=== PATIENT | male | born 1975 | race Two or more races ===

== ENCOUNTER 2024-06-13 00:22 | Emergency (ER) | payer MEDICARE, MEDICAID, SELFPAY ==
--- NOTE | ~2024-06-13 | XR_ITS ---
EXAMINATION: XR FOOT, RIGHT CLINICAL INFORMATION: s/p fall COMPARISON: None available. TECHNIQUE: AP, lateral, and oblique views of the right foot. FINDINGS: The bone mineralization is normal. There is a mildly displaced fracture through the distal fifth metatarsal. No other fracture is seen. The joint spaces are maintained. There is mild soft tissue swelling along the dorsum of the foot. XR/XR foot RT min 3V IMPRESSION: Mildly displaced fracture through the distal fifth metatarsal. Electronically signed by: Wilfredo Salinas MD 06/13/2024 01:22 AM [facility]
[2024-06-13 00:25] VITALS: BP 144/86; PULSE 76; O2SAT 98
[2024-06-13 00:32] VITALS: BP 119/63; PULSE 69; RESP 18; TEMP 36.8; O2SAT 98; BMI 30.4
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
--- NOTE | 2024-06-13 01:46 | PC.NURSE ---
This RN spoke to Edda, intake for [facility] at [phone] who reports they would not be able to provide transportation back to [facility] at [phone], [place] d/t incomplete intake/ patient requiring medical clearance. Per Edda, patient should find a ride back to [facility]. Per patient he does not have friends or family who would be able to provide transportation for him nor he has financial ability to pay for an uber ride. [employer] life sciences teacher made aware.
[2024-06-13] MEDS: Ibuprofen 800 MG TABLET PO (02:40)
[2024-06-13 02:42] VITALS: BP 132/89; PULSE 88; RESP 16; TEMP 36.7; O2SAT 98
== END 2024-06-13 02:43 | disposition home or self-care (01) ==
PROVIDERS: Emergency Provider Internal Medicine; PCP Internal Medicine
DX: S92.351A Displaced fracture of fifth metatarsal bone, right foot, initial encounter for closed fracture (principal); M79.671 Pain in right foot; X58.XXXA Exposure to other specified factors, initial encounter; Y93.9 Activity, unspecified; Y92.89 Other specified places as the place of occurrence of the external cause; Y99.8 Other external cause status
CPT/HCPCS: 73630; 99283; 99284

== ENCOUNTER 2024-08-28 14:00 | Emergency (ER) | payer MEDICARE, MEDICAID, SELFPAY ==
--- NOTE | ~2024-08-28 | US_ITS ---
CLINICAL HISTORY: ruq ? yenifer US abdomen limited Comparison: CT/SR - CT ABDOMEN PELVIS W IV CON - 08/28/24 16:57 EDT Findings: Multiple mobile echogenic foci in the gallbladder with acoustic shadowing consistent with cholelithiasis. The largest stone measures 2 cm. Gallbladder wall measures 2 mm. Common bile duct measures 4 mm. No ascites adjacent to the gallbladder. IMPRESSION: Cholelithiasis with no findings to suggest acute cholecystitis. This document has been electronically signed by: Chelsea Georges MD on 08/28/2024 19:09:05
--- NOTE | ~2024-08-28 | CT_ITS ---
CLINICAL HISTORY: abd pain n v CT abdomen and pelvis with contrast Comparison: None Findings: Minimal bilateral basilar atelectasis. No consolidation or pleural effusion. Cholelithiasis. No inflammatory changes adjacent to the gallbladder. No biliary ductal dilatation. The liver, spleen, pancreas, adrenal glands and kidneys appear unremarkable. No ureteral stones and no hydronephrosis or hydroureter. No bowel obstruction, pneumoperitoneum, or pneumatosis. Normal appendix. Moderate colonic stool. No free fluid. Mild wall thickening of urinary bladder anteriorly. Mild atherosclerotic vascular disease. No aneurysm of the abdominal aorta. No acute fracture. Right L5 pars defect and L5-S1 degenerative disc disease. L5-S1 and L4-5 facet arthropathy. IMPRESSION: 1. Cholelithiasis with no CT findings to suggest acute cholecystitis but if clinically indicated follow-up ultrasound could be obtained. 2. Moderate pancolonic stool, correlate with constipation. 3. Mild anterior urinary bladder thickening may represent cystitis. Correlate with urinalysis. This document has been electronically signed by: Chelsea Georges MD on 08/28/2024 17:51:10
[2024-08-28 14:04] VITALS: BP 158/102; PULSE 82; O2SAT 96
[2024-08-28 14:21] VITALS: BP 158/93; PULSE 66; RESP 16; TEMP 36.8; O2SAT 95; BMI 34.4
[2024-08-28 14:25] VITALS: BP 158/93; PULSE 66; RESP 16; TEMP 36.8; O2SAT 95
--- NOTE | 2024-08-28 14:31 | ED_ITS ---
HPI - Nausea/Vomiting/Diarrhea General Chief complaint: Nausea/Vomiting/Diarrhea Stated complaint: [facility] care home, vomiting Time Seen by Provider: 08/28/24 14:13 History of Present Illness HPI Narrative: Patient is a 49-year-old male with a history of feeling nausea at [facility]. Patient went to [facility] for life stressor. Denies any suicidal homicidal ideation. Claims he ate some bad chicken last night. Had some mild epigastric pain. No diarrhea. No abdominal surgery done in the past. Patient denies any coughing congestion upper respiratory symptoms. No diaphoresis. Related Data Previous Rx's ?Medication ?Instructions ?Recorded ibuprofen 600 mg tablet 600 mg PO Q6H PRN fever or pain 06/13/24 #30 tabs ondansetron 4 mg disintegrating 4 mg PO TID PRN nausea and 08/28/24 tablet vomiting 5 days #10 tabs Allergies Allergy/AdvReac Type Severity Reaction Status Date / Time No Known Allergies Allergy Verified 08/28/24 14:23 Review of Systems 2 Review of Systems: Positive abdominal pain nausea vomiting Yes all other systems are reviewed and are negative [facility] Past Medical History Attestation statement: The following information was validated with the patient. Social History Social History Alcohol intake: never Smoked in Last 30 Days: Yes Use of substances other than those prescribed or required for medical reasons: No Substance Use Type: Heroin Advance Directives: No Advance Directives Information Provided: No Do you have a plan to hurt others: No Plan Physical Exam 2 Vital Signs: Vital Signs: Last Vital Signs Temp 98.3 F 08/28/24 18:48 Pulse 88 08/28/24 18:48 Resp 18 08/28/24 18:48 BP 148/95 H 08/28/24 18:48 Pulse Ox 98 08/28/24 18:48 O2 Del Method Room Air 08/28/24 18:48 BMI result Body Mass Index 34.4 Appearance: Alert. Oriented X3. No acute distress. Eyes: Pupils equal, round and reactive to light. ENT: Pharynx normal. Neck: Normal inspection. Neck supple. No lymph nodes noted. No crepitus CVS: Normal heart rate and rhythm. Pulses normal. Normal S1 and S2 Respiratory: No respiratory distress. Breath sounds normal. No Wheezing. No rales Abdomen: Soft and nontender. No rigidity. No distention. good BS x4 Skin: Skin warm and dry. Normal skin color. Normal skin turgor. Extremities: No lower extremity edema. Neurovascular intact to all extremities. No Lacerations. No Rash Neuro: Oriented X 3. No motor deficit. No sensory deficit. Moving all extermities. No slurred speech Medications Administered Generic Name Dose Route Start Last Admin Trade Name Freq PRN Reason Stop Dose Admin Nicotine Polacrilex 2 mg 08/28/24 19:02 08/28/24 19:07 Nicotine Polacrilex 2 Mg Gum BUCCAL 2 mg Q1H PRN Administration Nicotine Cravings Discontinued Medications Generic Name Dose Route Start Last Admin Trade Name Freq PRN Reason Stop Dose Admin Sodium Chloride 1,000 mls @ 999 mls/hr 08/28/24 14:30 08/28/24 18:04 Ns IV 08/28/24 15:30 Infused .Q1H1M GILDARDO Infusion Iohexol 85 ml 08/28/24 17:02 08/28/24 17:03 Iohexol 350 Mg/Ml 100 Ml Infus..Btl IV 08/28/24 17:03 85 ml ONCE ONE Administration Ketorolac Tromethamine 15 mg 08/28/24 14:30 08/28/24 15:10 Ketorolac Tromethamine 15 Mg/Ml Vial IVPUSH 08/28/24 14:31 15 mg ONCE ONE Administration Ondansetron HCl 4 mg 08/28/24 14:30 08/28/24 15:10 Ondansetron Hcl 4 Mg/2 Ml Vial IVPUSH 08/28/24 14:31 4 mg ONCE ONE Administration Medical Decision Making Medical Decision Making [facility] Narrative: Patient presented today with having abdominal pain having nausea vomiting after eating bad chicken per patient. His CT scan of the abdomen showed no acute evidence of obstruction abscess perforation per Radiology. Unsure about having cholecystitis versus urinary tract infection patient's urine was grossly negative for infection. An ultrasound of the right upper quadrant showed cholelithiasis but no evidence for cholecystitis. Patient's symptom improved. Tolerated p.o. in the emergency department. Tox screen was positive for multiple substances. Will discharge patient home close follow-up on an outpatient basis not suicidal not homicidal in stable condition wants to go home. Differential Diagnosis Differential Diagnoses: The differential diagnosis associated with the presentation includes Nausea vomiting, cholecystitis, UTI, polysubstance abuse Admission/Observation Consideration of admission/observation: Escalation of care including admission/observation considered Lab Data MDM Lab Attestation statement: I reviewed the patient's lab results. 08/28/24 15:00 08/28/24 15:00 Labs: Lab Results 08/28/24 08/28/24 Range/Units 15:00 17:33 WBC 19.0 H (4.8-10.8) X10*3/uL RBC 4.39 L (4.60-5.80) X10*6/uL Hgb 13.4 L (14.0-18.0) g/dl Hct 40.5 L (42.0-52.0) % MCV 92.3 (80.0-98.0) fL MCH 30.5 (27.0-33.0) pg MCHC 33.1 (31.0-36.0) g/dl RDW 12.4 (11.0-16.0) % Plt Count 281 (160-400) X10*3/uL MPV 10.8 (9.4-12.4) fL Immature Gran % (Auto) 0.5 H (0.0-0.4) % Neut % (Auto) 85.3 H (45-73) % Lymph % (Auto) 5.9 L (20-40) % [place] % (Auto) 7.3 (2-11) % Eos % (Auto) 0.8 (0-4) % Baso % (Auto) 0.2 (0-2) % Lymph # (Auto) 1.1 L (1.2-4.9) X10*3/uL [place] # (Auto) 1.4 H (0.1-1.2) X10*3/uL Eos # (Auto) 0.2 (0.0-0.4) X10*3/uL Baso # (Auto) 0.0 (0.0-0.2) X10*3/uL Abs Immat Gran (auto) 0.09 H (0.00-0.03) X10*3/uL Absolute Neuts (auto) 16.2 H (2.0-8.3) x10*3/uL Absolute Nucleated RBC 0.000 (0.0-0.012) X10*3/uL Nucleated RBC % (auto) 0.0 (0.0-0.2) /100WBC Sodium 142 (135-145) mmol/L Potassium 3.4 (3.3-5.1) mmol/L Chloride 106 (96-108) mmol/L Carbon Dioxide 27 (22-29) mmol/L Anion Gap 12 (12-20) BUN 12 (9-16) mg/dL Creatinine 0.72 (0.5-1.4) mg/dL Estim Creat Clear Calc 161.2 Estimated GFR > 60 Random Glucose 107 (60-115) mg/dL Calcium 9.6 (8.4-10.2) mg/dL Total Bilirubin 0.4 (0.0-1.0) mg/dL Direct Bilirubin 0.1 (0.0-0.5) mg/dL AST 19 (5-37) U/L ALT 9 (0-40) U/L Alkaline Phosphatase 84 (39-117) U/L Total Protein 8.4 H (6.5-8.0) g/dL Albumin 4.2 (3.5-5.0) g/dL Lipase 20 (8-78) U/L Urine Color Yellow Urine Appearance Clear Urine pH 6.5 (5.0-9.0) Ur Specific [place] >= 1.030 H (1.005-1.025) Urine Protein 30 (1+) H (Neg-Trace) mg/dL Urine Glucose (UA) Negative (Negative) mg/dL Urine Ketones Negative (Negative) mg/dL Urine Blood Negative (Negative) Urine Nitrite Negative (Negative) Ur Leukocyte Esterase Negative (Negative) Urine RBC 0-2 (0-2) /HPF Urine WBC 0-5 (0-5) /HPF Ur Squamous Epith Cells 0-2 (0-2) /HPF Urine Bacteria None Seen (None Seen) Hyaline Casts 3-5 (0-2) /LPF Urine Opiates Screen POSITIVE H (Not Detect) Ur Buprenorphine Scrn Not Detected (Not Detect) ng/mL Ur Oxycodone Screen Not Detected (Not Detect) ng/mL Urine Methadone Screen Positive H (Not Detect) ng/mL Urine Fentanyl Screen POSITIVE H (Not Detect) Ur Barbiturates Screen Not Detected (Not Detect) Ur Phencyclidine Scrn Not Detected (Not Detect) Ur Amphetamines Screen Not Detected (Not Detect) U Benzodiazepines Scrn Not Detected (Not Detect) Urine Cocaine Screen POSITIVE H (Not Detect) U Marijuana (THC) Screen Not Detected (Not Detect) Ethyl Alcohol < 10 mg/dL Independent Interpretation I performed an independent interpretation of an: CT Scan (No gross obstruction observed) Radiology Impression Discussion of test interpretation with radiology: I have reviewed the radiologist's reading. Chronic Conditions History of polysubstance abuse Social Determinants Patient?s care significantly limited by Social Determinants of Health including: Alcoholism and drug addiction in family, Problems related to primary support group and Unemployment Discharge Plan Discharge Clinical Impression: Food poisoning Patient Disposition: Home, Self-Care Instructions: Food Poisoning (ED) Prescriptions: New ondansetron 4 mg tablet,disintegrating 4 mg PO TID PRN (Reason: nausea and vomiting) 5 Days Qty: 10 0RF No Action ibuprofen 600 mg tablet 600 mg PO Q6H PRN (Reason: fever or pain) Qty: 30 0RF Referrals: Harvey Javier MD [Primary Care Provider] - 08/30/24 Print Language: Cameroonian
[2024-08-28 15:04] LABS: MANUAL DIFF FLAG NO
[2024-08-28 15:09] LABS: Basophils Percent Auto 0.2 % (0-2); Eosinophils Absolute Auto 0.2 X10*3/uL (0.0-0.4); Eosinophils Percent Auto 0.8 % (0-4); Hematocrit 40.5 % (42.0-52.0); Hemoglobin 13.4 g/dl (14.0-18.0); Imm Gran Abs Auto 0.09 X10*3/uL (0.00-0.03); Imm Gran Pct Auto 0.5 % (0.0-0.4); Lymphocytes Absolute Auto 1.1 X10*3/uL (1.2-4.9); Lymphocytes Percent Auto 5.9 % (20-40); Mean Corpuscular HGB Conc 33.1 g/dl (31.0-36.0); Mean Corpuscular Hemoglobin 30.5 pg (27.0-33.0); Mean Corpuscular Volume 92.3 fL (80.0-98.0); Mean Platelet Volume 10.8 fL (9.4-12.4); Monocytes Absolute Auto 1.4 X10*3/uL (0.1-1.2); Monocytes Percent Auto 7.3 % (2-11); Neutrophils Absolute Auto 16.2 x10*3/uL (2.0-8.3); Neutrophils Percent Auto 85.3 % (45-73); Platelet Count 281 X10*3/uL (160-400); Red Blood Count 4.39 X10*6/uL (4.60-5.80); Red Cell Distribution Width 12.4 % (11.0-16.0)
[2024-08-28] MEDS: Ketorolac Tromethamine 15 MG/ML VIAL IVPUSH (15:10)
[2024-08-28] MEDS: ondansetron HCL 4 MG/2 ML VIAL IVPUSH (15:10)
[2024-08-28] MEDS: 0.9 % Sodium Chloride 1,000 ML 999 ML IV (15:10)
[2024-08-28 15:34] LABS: Ethanol < 10 mg/dL
[2024-08-28 15:46] LABS: Anion Gap 12 (12-20)
[2024-08-28 15:51] LABS: Alanine Aminotransferase 9 U/L (0-40); Albumin Level 4.2 g/dL (3.5-5.0); Aspartate Amino Transferase 19 U/L (5-37); Bilirubin Direct 0.1 mg/dL (0.0-0.5); Bilirubin Total 0.4 mg/dL (0.0-1.0); Blood Urea Nitrogen 12 mg/dL (9-16); Calcium 9.6 mg/dL (8.4-10.2); Carbon Dioxide 27 mmol/L (22-29); Chloride 106 mmol/L (96-108); Creatinine Clr Calc Pharmacy 161.2; Estimated Glomerular Filt Rate > 60; Glucose Random 107 mg/dL (60-115); Lipase 20 U/L (8-78); Potassium 3.4 mmol/L (3.3-5.1); Sodium 142 mmol/L (135-145); Total Protein 8.4 g/dL (6.5-8.0)
--- NOTE | 2024-08-28 16:15 | PC.NURSE ---
Pt. refusing changeover to hospital attire.
[2024-08-28] MEDS: iohexoL 350 MG/ML 100 ML INFUS..BTL 85 ML IV (17:03)
[2024-08-28 17:47] LABS: Alkaline Phosphatase 84 U/L (39-117)
[2024-08-28 17:49] LABS: Amphetamine Screen Urine Not Detected (Not Detect); Barbiturates, Urine Not Detected (Not Detect); Benzodiazepines Screen Urine Not Detected (Not Detect); Buprenorphine Scr Not Detected (Not Detect); Cannabinoid Screen Urine Not Detected (Not Detect); Cocaine Screen Urine POSITIVE (Not Detect); Fentanyl, urine POSITIVE (Not Detect); Methadone Screen, Urine Positive (Not Detect); Opiate Screen Urine POSITIVE (Not Detect); Oxycodone Screen Urine Not Detected (Not Detect); Phencyclidine Screen Urine Not Detected (Not Detect)
[2024-08-28 18:48] VITALS: BP 148/95; PULSE 88; RESP 18; TEMP 36.8; O2SAT 98
[2024-08-28 19:02] LABS: Appearance Urine Clear; Color Urine Yellow; Glucose Urine UA Negative (Negative); Leukocyte Esterase Urine Negative (Negative); Nitrite Urine Negative (Negative); PH 6.5 (5.0-9.0); Specific Gravity - Urine >= 1.030 (1.005-1.025); UMIC TRIGGER UACC YES; Urine Blood Negative (Negative); Urine Ketones Negative (Negative); Urine Protein 30 (1+) mg/dL (Neg-Trace)
[2024-08-28 19:05] LABS: Bacteria Urine None Seen (None Seen); RBC Urine 0-2 /HPF (0-2); Squamous Epithelial Cell Urine 0-2 /HPF (0-2); WBC Urine 0-5 /HPF (0-5)
[2024-08-28] MEDS: Nicotine Polacrilex 2 MG GUM BUCCAL (19:07)
--- NOTE | 2024-08-28 19:30 | PC.NURSE ---
This RN d/c patient for RN who assumed care of pt. Pt denies pain at this time Pt reports he is going back to [facility] in [place] and reports needs to be given to [facility] that he is medically cleared. This RN called [facility] @ [phone] Per [facility] will have a line installation supervisor call us back. Plan of care ongoing.
[2024-08-28 19:33] VITALS: BP 148/95; PULSE 88; RESP 18; TEMP 36.8; O2SAT 98
== END 2024-08-28 19:37 | disposition home or self-care (01) ==
PROVIDERS: Emergency Provider Emergency Medicine Emergency Medical Services; PCP Internal Medicine
DX: A05.9 Bacterial foodborne intoxication, unspecified (principal); R11.2 Nausea with vomiting, unspecified; R10.11 Right upper quadrant pain; F14.90 Cocaine use, unspecified, uncomplicated; F11.90 Opioid use, unspecified, uncomplicated; F12.90 Cannabis use, unspecified, uncomplicated; Z51.81 Encounter for therapeutic drug level monitoring; Z79.899 Other long term (current) drug therapy
CPT/HCPCS: 36415; 74177; 76705; 80048; 80076; 80307; 81001; 83690; 85025; 96361; 96374; 96375; 99284; 99285; J1885; J2405; Q9967

== ENCOUNTER → 2024-08-28 14:29 | Outpatient (BNV) | payer MEDICARE, MEDICAID, SELFPAY | PROVIDERS: Emergency Provider Emergency Medicine Emergency Medical Services; PCP Internal Medicine; Visit Provider Specialist | DX: K80.20 Calculus of gallbladder without cholecystitis without obstruction (principal); R19.5 Other fecal abnormalities | CPT/HCPCS: 74177; 76705 ==

== ENCOUNTER 2024-11-27 13:10 | Emergency (ER) | payer MEDICARE, MEDICAID, SELFPAY ==
[2024-11-27 13:29] VITALS: BP 154/77; PULSE 60; RESP 18; TEMP 36.4; O2SAT 95; BMI 29.3
--- NOTE | 2024-11-27 13:33 | ED_ITS ---
HPI - General Adult General Chief complaint: Psychiatric Symptoms Stated complaint: Crisis Time Seen by Provider: 11/27/24 14:08 Source: patient and RN notes reviewed Mode of arrival: ambulatory Limitations: no limitations History of Present Illness ED Provider: Cecy Maldonado PA-C HPI narrative: This is a 49-year-old male, with a past medical history of opioid use disorder on methadone 100 mg daily, who presents emergency department with concerns of ?dark thoughts and feeling depressed . Patient states that he has thoughts of ending his life with overdosing on dope . He denies any SI or HI. Patient states that he does use about a bundle of heroin a day. He denies any homicidal ideation. No auditory or visual hallucinations. He has no current pain. No chest pain or shortness for breath. No abdominal pain. No urinary symptoms, he does report that his urine is dark. He states that he has a history of suicidal thoughts however states that he has not had these for about 20 years. He does admit to having increased life stressors, does not elaborate on these details. No other complaints or concerns at this time. MD complaint: Suicidal ideation, increased depression Radiation: non-radiation Quality: aching Pain Consistency: constant Relieving factors: none Exacerbating factors: none Associated symptoms: denies other symptoms Treatments prior to arrival: none Related Data Home Medications ?Medication ?Instructions ?Recorded ?Confirmed clonazepam 1 mg tablet 1 mg PO TID PRN Anxiety 11/27/24 11/27/24 clonidine HCl 0.1 mg tablet 0.1 mg PO BID 11/27/24 11/27/24 fluoxetine 20 mg capsule 20 mg PO DAILY 11/27/24 11/27/24 lisinopril 10 mg tablet 10 mg PO DAILY 11/27/24 11/27/24 trazodone 50 mg tablet 100 mg PO BEDTIME PRN Sleep 11/27/24 11/27/24 methadone 10 mg/mL oral 100 mg PO DAILY 11/28/24 11/28/24 concentrate (Methadone Intensol) Previous Rx's ?Medication ?Instructions ?Recorded ibuprofen 600 mg tablet 600 mg PO Q6H PRN fever or pain 06/13/24 #30 tabs ondansetron 4 mg disintegrating 4 mg PO TID PRN nausea and 08/28/24 tablet vomiting 5 days #10 tabs Allergies Allergy/AdvReac Type Severity Reaction Status Date / Time No Known Allergies Allergy Verified 11/27/24 13:31 Review of Systems 2 Review of Systems: Yes all other systems are reviewed and are negative Constitutional: Constitutional: Reports as per [facility] Past Medical History Attestation statement: The following information was validated with the patient. Social History Social History Alcohol intake: never Smoked in Last 30 Days: Yes Use of substances other than those prescribed or required for medical reasons: Yes Substance Use Type: Heroin and Opiates Substance Use Frequency: Chronic Longstanding Advance Directives: No Advance Directives Information Provided: No Physical Exam ED Vital Signs: Vital Signs - 24 hr 11/27/24 13:29 11/27/24 14:19 11/27/24 21:06 Temperature 97.5 F 98 F Pulse Rate 60 58 60 Respiratory Rate 18 16 18 Blood Pressure 154/77 H 166/96 H 176/92 H Pulse Oximetry 95 96 99 Oxygen Delivery Method Room Air Room Air Room Air 11/27/24 22:39 11/27/24 22:41 11/28/24 08:09 Temperature 0 F L Pulse Rate 61 61 Respiratory Rate 16 18 Blood Pressure 155/83 H 155/83 H 155/83 H Pulse Oximetry Oxygen Delivery Method BMI result Body Mass Index 29.3 Const General: cooperative, comfortable and no acute distress Orientation/consciousness: patient oriented x3 Limitations: no limitations [facility] Head: Yes normal to inspection, Yes normocephalic and Yes atraumatic Ears: hearing grossly normal bilaterally General nose exam: Normal external nose present Face and sinus: Yes normal facial exam Mouth: Normal oral and palatal mucosa present, oropharynx normal and moist mucous membranes Throat: Yes posterior oropharynx normal Eyes General: appearance normal, both eyes and all related structures Eyelids: Yes eyelids normal Conjunctivae: conjunctivae normal Sclerae: sclerae normal Pupils: Equal, round and reactive pupils present EOM: EOMs intact bilaterally Neck Neck: Yes normal visual inspection, Yes full ROM and Yes no lymphadenopathy Lymphatic: no lymphadenopathy noted Chest Chest palpation & inspection: normal inspection of the chest Resp Effort & Inspection: normal respiratory effort and able to speak in complete sentences Auscultation: clear to auscultation bilaterally, no crackles, no rales, no rhonchi and no wheezes Cardio Rate: regular rate Rhythm: regular rhythm Heart sounds: S1 normal heart sound present and S2 normal heart sound present GI Inspection: Yes normal to inspection Skin General skin exam: no rashes or lesions noted Trauma: no lacerations or abrasions Wounds: no wounds Neuro General: patient oriented x3 and moves all extremities Cranial nerves: Yes Equal, round and reactive pupils present Extrem General: Yes normal to inspection Right upper extremity: normal to inspection Left upper extremity: normal to inspection Right lower extremity: normal to inspection Left lower extremity: normal to inspection Psych Appearance: grossly normal Mental Status: mental status grossly normal Speech and movement: Normal speech and movement present Affect: Sad affect present Attitude: Guarded attititude/behavior present and Avoids eye contact (attititude/behavior) Thought process: Normal thought process present Thought content: Suicidality present and Homicidality present Insight: Limited insight present (Psych) Judgement: Limited judgement present (Psych) Course Course Course Narrative: RMEI: 49 yold male with history of depression presents to ED for dark thoughts and extreme depression. Patient denies any suicidal or homicidal thoughts. Patient is with family friend who he calls his mother. Labs care team motor Reevaluation(s) Reevaluation #1: Time: 06:35 Date: 11/28/24 Provider: Johann Leonard MD Patient in physician observation for psychiatric evaluation.? Patient has been in the emergency department for 17 hours. Patient was evaluated by the care team, diagnosed with depression and opiate use disorder and the patient will be a dual diagnosis bed search. Patient is voluntary level of care. No acute events reported overnight. No current complaints. VS stable. Will continue to monitor. Time: 07:52 Date: 11/28/24 Provider: Johann Leonard MD Physician observation ended at 07:52 hours. Patient has been was accepted to [facility] for further treatment. Patient was given his dose of methadone 100 mg orally prior to discharge. Medications Administered Discontinued Medications Generic Name Dose Route Start Last Admin Trade Name Freq PRN Reason Stop Dose Admin Clonazepam 1 mg 11/27/24 22:00 11/27/24 22:41 Clonazepam 1 Mg Tablet PO 1 mg TID PRN Administration Anxiety Clonidine HCl 0.1 mg 11/27/24 22:00 11/27/24 22:41 Clonidine Hcl 0.1 Mg Tablet PO 0.1 mg BID GILDARDO Administration Protocol Methadone HCl 100 mg 11/28/24 07:48 11/28/24 07:57 Methadone Hcl 20 Mg/2 Ml Oral.Conc PO 11/28/24 07:49 100 mg ONCE ONE Administration Trazodone HCl 100 mg 11/27/24 22:00 11/27/24 22:41 Trazodone Hcl 100 Mg Tablet PO 100 mg BEDTIME PRN Administration Sleep Medical Decision Making Medical Decision Making [facility] Narrative: This is a 49-year-old male, with a history of opioid use disorder on methadone, who presents emergency department with concerns of increased depression and suicidal ideation with plan to overdose on heroin. On arrival, blood pressure elevated 154/77. He is in no current pain. No chest pain, shortness of breath, blurred vision or headache. Patient has no physical complaints. We will obtain basic labs, urinalysis, U tox and patient will be seen by the care team. Course: Labs returned, patient with no leukocytosis, normocytic anemia with an H&H of 12.3/37, chemistry with no significant electrolyte derangement, UA with high specific gravity, trace ketones, and trace protein and trace leuk esterases. He has no urinary symptoms, will await urine culture. Urine toxicology revealing positive opiates, methadone, fentanyl and cocaine. Will add CPK, and troponin as well as EKG. 1753 - CPK within normal limits, troponin negative. EKG sinus bradycardic at a ventricular rate of 58 beats per minute, KY interval 174, QT QTC 442/433, no STEMI. Patient was seen and evaluated by the care team, and recommending dual diagnosis bed search. Physician observation initiated pending inpatient dual diagnosis bed search. Differential Diagnosis Differential Diagnoses: The differential diagnosis associated with the presentation includes Depression, anxiety, polysubstance abuse, suicidal ideation Lab Data [facility] Lab Attestation statement: I reviewed the patient's lab results. See MDM and course comment 11/27/24 15:04 11/27/24 15:04 Labs: Lab Results 11/27/24 Range/Units 15:04 WBC 5.9 (4.8-10.8) X10*3/uL RBC 3.99 L (4.60-5.80) X10*6/uL Hgb 12.3 L (14.0-18.0) g/dl Hct 37.0 L (42.0-52.0) % MCV 92.7 (80.0-98.0) fL MCH 30.8 (27.0-33.0) pg MCHC 33.2 (31.0-36.0) g/dl RDW 12.0 (11.0-16.0) % Plt Count 205 D (160-400) X10*3/uL MPV 10.8 (9.4-12.4) fL Immature Gran % (Auto) 0.3 (0.0-0.4) % Neut % (Auto) 50.7 (45-73) % Lymph % (Auto) 39.3 (20-40) % Lamar % (Auto) 6.3 (2-11) % Eos % (Auto) 2.9 (0-4) % Baso % (Auto) 0.5 (0-2) % Lymph # (Auto) 2.3 (1.2-4.9) X10*3/uL Lamar # (Auto) 0.4 (0.1-1.2) X10*3/uL Eos # (Auto) 0.2 (0.0-0.4) X10*3/uL Baso # (Auto) 0.0 (0.0-0.2) X10*3/uL Abs Immat Gran (auto) 0.02 (0.00-0.03) X10*3/uL Absolute Neuts (auto) 3.0 (2.0-8.3) x10*3/uL Absolute Nucleated RBC 0.000 (0.0-0.012) X10*3/uL Nucleated RBC % (auto) 0.0 (0.0-0.2) /100WBC PT 11.6 (10.9-12.4) SEC INR 1.0 (0.9-1.1) APTT 32.2 (26.0-36.8) SEC Sodium 142 (135-145) mmol/L Potassium 3.8 (3.3-5.1) mmol/L Chloride 105 (96-108) mmol/L Carbon Dioxide 31 H (22-29) mmol/L Anion Gap 10 L (12-20) BUN 11 (9-16) mg/dL Creatinine 0.66 (0.5-1.4) mg/dL Estim Creat Clear Calc 162.9 Estimated GFR > 60 Random Glucose 115 (60-115) mg/dL Calcium 9.7 (8.4-10.2) mg/dL Total Bilirubin 0.3 (0.0-1.0) mg/dL AST 23 (5-37) U/L ALT 12 (0-40) U/L Alkaline Phosphatase 73 (39-117) U/L Total Creatine Kinase 117 (38-174) U/L Troponin I High Sens 2.8 (<3.5-35.0) ng/L Total Protein 7.3 (6.5-8.0) g/dL Albumin 4.2 (3.5-5.0) g/dL Urine Color Dark Yellow Urine Appearance Clear Urine pH 6.0 (5.0-9.0) Ur Specific Mcbee >= 1.030 H (1.005-1.025) Urine Protein Trace (Neg-Trace) mg/dL Urine Glucose (UA) Negative (Negative) mg/dL Urine Ketones Trace (Negative) mg/dL Urine Blood Negative (Negative) Urine Nitrite Negative (Negative) Ur Leukocyte Esterase Trace H (Negative) Urine RBC 0-2 (0-2) /HPF Urine WBC 0-5 (0-5) /HPF Ur Squamous Epith Cells 0-2 (0-2) /HPF Urine Bacteria None Seen (None Seen) Hyaline Casts 0-2 (0-2) /LPF Urine Opiates Screen POSITIVE H (Not Detect) Ur Buprenorphine Scrn Not Detected (Not Detect) ng/mL Ur Oxycodone Screen Not Detected (Not Detect) ng/mL Urine Methadone Screen Positive H (Not Detect) ng/mL Urine Fentanyl Screen POSITIVE H (Not Detect) Ur Barbiturates Screen Not Detected (Not Detect) Ur Phencyclidine Scrn Not Detected (Not Detect) Ur Amphetamines Screen Not Detected (Not Detect) U Benzodiazepines Scrn Not Detected (Not Detect) Urine Cocaine Screen POSITIVE H (Not Detect) U Marijuana (THC) Screen Not Detected (Not Detect) Ethyl Alcohol < 10 mg/dL Discharge Plan Discharge Clinical Impression: Opioid use disorder, Suicidal ideation Patient Disposition: Xfer Psychiatric Hosp Transfer Details: [facility] Prescriptions: No Action ibuprofen 600 mg tablet 600 mg PO Q6H PRN (Reason: fever or pain) Qty: 30 0RF ondansetron 4 mg tablet,disintegrating 4 mg PO TID PRN (Reason: nausea and vomiting) 5 Days Qty: 10 0RF clonazepam 1 mg tablet 1 mg PO TID PRN (Reason: Anxiety) fluoxetine 20 mg capsule 20 mg PO DAILY clonidine HCl 0.1 mg tablet 0.1 mg PO BID lisinopril 10 mg tablet 10 mg PO DAILY trazodone 50 mg tablet 100 mg PO BEDTIME PRN (Reason: Sleep) methadone [Methadone Intensol] 10 mg/mL Concentrate 100 mg PO DAILY Interventions: [place]-Suicide Risk Severity Scale Last Done: 11/27/24 14:19 Acute Care Transfer Worksheet (ED) Last Done: 11/28/24 08:09 Discharge Date/Time: 11/28/24 08:12 Print Language: Angolan
[2024-11-27 14:19] VITALS: BP 166/96; PULSE 58; RESP 16; O2SAT 96
--- NOTE | 2024-11-27 14:24 | PC.NURSE ---
Patient is a 49 yo male who presents with increasing depression, and vague SI. PMH: opiate use disorder on maintenance methadone program. States was suicidal yesterday and was planning to overdose. Alert and oriented, cooperative with care.No eye contact noted. Lungs clear bilat. Respirations even and non-labored. Abdomen soft, non-tender with positive bowel sounds. Positive pedal pulses. Pending care team eval.
[2024-11-27 15:09] LABS: MANUAL DIFF FLAG NO
[2024-11-27 15:11] LABS: Basophils Percent Auto 0.5 % (0-2); Eosinophils Absolute Auto 0.2 X10*3/uL (0.0-0.4); Eosinophils Percent Auto 2.9 % (0-4); Hemoglobin 12.3 g/dl (14.0-18.0); Imm Gran Abs Auto 0.02 X10*3/uL (0.00-0.03); Imm Gran Pct Auto 0.3 % (0.0-0.4); Lymphocytes Absolute Auto 2.3 X10*3/uL (1.2-4.9); Lymphocytes Percent Auto 39.3 % (20-40); Mean Corpuscular HGB Conc 33.2 g/dl (31.0-36.0); Mean Corpuscular Hemoglobin 30.8 pg (27.0-33.0); Mean Corpuscular Volume 92.7 fL (80.0-98.0); Mean Platelet Volume 10.8 fL (9.4-12.4); Monocytes Absolute Auto 0.4 X10*3/uL (0.1-1.2); Monocytes Percent Auto 6.3 % (2-11); Neutrophils Percent Auto 50.7 % (45-73); Platelet Count 205 X10*3/uL (160-400); Red Blood Count 3.99 X10*6/uL (4.60-5.80); White Blood Count 5.9 X10*3/uL (4.8-10.8)
[2024-11-27 15:15] LABS: Appearance Urine Clear; Color Urine Dark Yellow; Glucose Urine UA Negative (Negative); Leukocyte Esterase Urine Trace (Negative); Nitrite Urine Negative (Negative); Specific Gravity - Urine >= 1.030 (1.005-1.025); UMIC TRIGGER UACC YES; Urine Blood Negative (Negative); Urine Ketones Trace mg/dL (Negative); Urine Protein Trace mg/dL (Neg-Trace)
[2024-11-27 15:17] LABS: Prothrombin Time 11.6 SEC (10.9-12.4)
[2024-11-27 15:18] LABS: Bacteria Urine None Seen (None Seen); Hyaline Casts Urine 0-2 /LPF (0-2); RBC Urine 0-2 /HPF (0-2); Squamous Epithelial Cell Urine 0-2 /HPF (0-2); WBC Urine 0-5 /HPF (0-5)
[2024-11-27 15:19] LABS: Partial Thromboplastin Time 32.2 SEC (26.0-36.8)
[2024-11-27 15:26] LABS: Amphetamine Screen Urine Not Detected (Not Detect); Barbiturates, Urine Not Detected (Not Detect); Benzodiazepines Screen Urine Not Detected (Not Detect); Buprenorphine Scr Not Detected (Not Detect); Cannabinoid Screen Urine Not Detected (Not Detect); Cocaine Screen Urine POSITIVE (Not Detect); Fentanyl, urine POSITIVE (Not Detect); Methadone Screen, Urine Positive (Not Detect); Opiate Screen Urine POSITIVE (Not Detect); Oxycodone Screen Urine Not Detected (Not Detect); Phencyclidine Screen Urine Not Detected (Not Detect)
[2024-11-27 15:28] LABS: Alanine Aminotransferase 12 U/L (0-40); Albumin Level 4.2 g/dL (3.5-5.0); Alkaline Phosphatase 73 U/L (39-117); Anion Gap 10 (12-20); Aspartate Amino Transferase 23 U/L (5-37); Bilirubin Total 0.3 mg/dL (0.0-1.0); Blood Urea Nitrogen 11 mg/dL (9-16); Calcium 9.7 mg/dL (8.4-10.2); Carbon Dioxide 31 mmol/L (22-29); Chloride 105 mmol/L (96-108); Creatinine Clr Calc Pharmacy 162.9; Estimated Glomerular Filt Rate > 60; Ethanol < 10 mg/dL; Glucose Random 115 mg/dL (60-115); Potassium 3.8 mmol/L (3.3-5.1); Sodium 142 mmol/L (135-145); Total Protein 7.3 g/dL (6.5-8.0)
--- NOTE | 2024-11-27 16:10 | ECG_ITS ---
Test Reason : CHECK PROLONG QT Blood Pressure : */* mmHG Vent. Rate : 58 BPM Atrial Rate : 58 BPM P-R Int : 174 ms QRS Dur : 96 ms QT Int : 442 ms P-R-T Axes : 24 3 27 degrees QTcB Int : 433 ms Sinus bradycardia Otherwise normal ECG No previous ECGs available Referred By: Cecy Maldonado Electronically Signed By: LITA COPE MD
[2024-11-27 16:36] LABS: Troponin-I High Sensitivity 2.8 ng/L (<3.5-35.0)
[2024-11-27 21:06] VITALS: BP 176/92; PULSE 60; RESP 18; TEMP 36.6; O2SAT 99
[2024-11-27 22:39] VITALS: BP 155/83; PULSE 61; RESP 16
[2024-11-27 22:41] VITALS: BP 155/83
[2024-11-27] MEDS: clonazePAM 1 MG TABLET PO (22:41)
[2024-11-27] MEDS: traZODone HCL 100 MG TABLET PO (22:41)
[2024-11-27] MEDS: cloNIDine HCL 0.1 MG TABLET PO (22:41)
--- NOTE | 2024-11-28 07:42 | PC.NURSE ---
Addendum entered by Ana Lazaro RN 11/28/24 07:45: Methadone verification form completed and faxed to Pharmacy. Call placed to Pharmacy and spoke with Cynthia who confirms form arrival. Hard copy placed to be filed in Pts hard chart. Original Note: Call placed to [facility] to verify Pts Methadone dose. Pt placed on the phone to provide consent to [facility] release Methadone information over the phone. Spoke with MARLENE Iraheta who verifies 100mg given on 11/27/24. Myrtle advised that Pt will be transitioning to [facility] today.
--- NOTE | 2024-11-28 07:54 | HE.PHANOTE ---
RE: METHADONE DOSING Last dose of methadone 100 mg was given on 11/27/24 at Linnette Iraheta RN.
[2024-11-28] MEDS: methADONE HCl 20 MG/2 ML ORAL.CONC 100 MG PO (07:57)
--- NOTE | 2024-11-28 08:01 | PC.NURSE ---
Pt scheduled for transfer to [facility] Pt dosed with Methadone prior to departure. RN report given to [facility] for transport. Care of Pt relinquished to [facility].
[2024-11-28 08:09] VITALS: BP 155/83; PULSE 61; RESP 18; TEMP -17.7; TEMP 0
== END 2024-11-28 08:12 ==
PROVIDERS: Physician Assistant; Physician Assistant Medical; Emergency Provider Emergency Medicine Emergency Medical Services; PCP Internal Medicine
DX: F33.1 Major depressive disorder, recurrent, moderate (principal); R45.851 Suicidal ideations; F11.10 Opioid abuse, uncomplicated; R00.1 Bradycardia, unspecified; Z79.899 Other long term (current) drug therapy; Z51.81 Encounter for therapeutic drug level monitoring
CPT/HCPCS: 36415; 80053; 80307; 81001; 82550; 84484; 85025; 85610; 85730; 93005; 99285; S9485

== ENCOUNTER → 2024-11-27 16:10 | Outpatient (BNV) | payer MEDICARE, MEDICAID, SELFPAY | PROVIDERS: Emergency Provider Emergency Medicine Emergency Medical Services; PCP Internal Medicine; Visit Provider Internal Medicine Cardiovascular Disease | DX: R00.1 Bradycardia, unspecified (principal) | CPT/HCPCS: 93010 ==

== ENCOUNTER 2025-01-28 15:17 | Inpatient (IN) | payer MEDICARE, MEDICAID, SELFPAY ==
[2025-01-28 15:27] VITALS: BP 136/72; PULSE 82; O2SAT 99
[2025-01-28 15:52] VITALS: BP 147/74; PULSE 80; RESP 18; TEMP 36.3; O2SAT 97; BMI 33.5
--- NOTE | 2025-01-28 15:52 | ECG_ITS ---
Test Reason : MED CLEARANCE Blood Pressure : */* mmHG Vent. Rate : 73 BPM Atrial Rate : 73 BPM P-R Int : 162 ms QRS Dur : 92 ms QT Int : 416 ms P-R-T Axes : 45 2 32 degrees QTcB Int : 458 ms Normal sinus rhythm Normal ECG When compared with ECG of 27-Nov-2024 16:42, No significant change was found Referred By: Sheridan Cabrera Electronically Signed By: José Manuel Buck
--- NOTE | 2025-01-28 15:52 | ED.GENADULT ---
HPI - General Adult General Chief complaint: Psychiatric Symptoms Stated complaint: SEC 12 HI PER EMS Time Seen by Provider: 01/28/25 15:51 Source: patient and EMS Mode of arrival: EMS Limitations: no limitations History of Present Illness ED Provider: Sheridan Cabrera PA-C HPI narrative: Patient is a 50 year old assigned male at with a history of opiate use disorder on methadone presenting to the emergency department today with homicidal ideation. Patient states that he caught the woman he is with having relations with his best friend. Patient states that he is now feeling the need to kill them. Patient denies any thoughts of hurting himself or any other complaints at this time. Patient is on a section 12 from the community. Related Data Home Medications ?Medication ?Instructions ?Recorded ?Confirmed clonazepam 1 mg tablet 1 mg PO TID PRN Anxiety 11/27/24 01/28/25 clonidine HCl 0.1 mg tablet 0.1 mg PO BID PRN anxiety/bp 11/27/24 01/29/25 trazodone 50 mg tablet 100 mg PO BEDTIME PRN Sleep 11/27/24 01/28/25 methadone 10 mg/mL oral 100 mg PO DAILY 11/28/24 01/29/25 concentrate (Methadone Intensol) calcium 500 mg 1 tab PO BID 01/29/25 01/29/25 (carb,gluconate)-magnesium 250 mg (gluc,oxide) tablet melatonin 3 mg tablet 3 mg PO BEDTIME 01/29/25 01/29/25 multivitamin 1 tab PO DAILY 01/29/25 01/29/25 Allergies Allergy/AdvReac Type Severity Reaction Status Date / Time No Known Allergies Allergy Verified 01/28/25 17:05 Review of Systems Constitutional: Constitutional: Reports as per HPI Eyes: Eyes: Reports as per HPI ENT: Reports as per HPI Cardiovascular: Cardiovascular: Reports as per HPI Respiratory: Respiratory: Reports as per HPI Gastrointestinal: Gastrointestinal: Reports as per HPI Genitourinary: Genitourinary: Reports as per HPI Musculoskeletal: Musculoskeletal: Reports as per HPI Integumentary/Breasts: Skin/Breast: Reports as per HPI Neurologic: Reports as per HPI Psychiatric: Psychiatric: Reports homicidal ideation and Denies suicidal ideation Endocrine: Endocrine: Reports as per HPI Hematologic/Lymphatic: Hematologic/Lymphatic: Reports as per HPI Allergic/Immunologic: Allergic/Immunologic: Reports as per HPI PMF Past Medical History Attestation statement: The following information was validated with the patient. Source: old records reviewed and nursing notes reviewed Social History Social History Alcohol intake: never Smoked in Last 30 Days: No Substance Use Type: Heroin and Opiates Advance Directives: No Advance Directives Information Provided: Yes Do you have a plan to hurt others: No Plan Physical Exam ED Vital Signs: Vital Signs - 24 hr 01/29/25 14:56 01/29/25 20:11 01/29/25 20:11 Temperature 97.7 F 98.4 F Pulse Rate 76 66 Respiratory Rate 16 18 Blood Pressure 150/72 H 153/91 H 153/91 H Pulse Oximetry 96 96 Oxygen Delivery Method Room Air Room Air 01/30/25 06:19 01/30/25 08:15 Temperature 97.1 F Pulse Rate 72 Respiratory Rate 16 16 Blood Pressure 175/97 H Pulse Oximetry 99 Oxygen Delivery Method Room Air BMI result Body Mass Index 33.5 Const General: cooperative, no acute distress, alert and awake Nutritional Appearance: well nourished Orientation/consciousness: patient oriented x3 HENMT Head: Yes normal to inspection and Yes atraumatic Ears: hearing grossly normal bilaterally and external ears normal General nose exam: Normal external nose present, no nasal discharge noted and no epistaxis Face and sinus: Yes normal facial exam, No abrasion and No laceration Mouth: Normal oral and palatal mucosa present, no drooling and no muffled voice Eyes General: appearance normal, both eyes and all related structures Periorbital: periorbital findings normal Eyelids: Yes eyelids normal Conjunctivae: conjunctivae normal Pupils: Equal, round and reactive pupils present EOM: EOMs intact bilaterally Neck Neck: Yes normal visual inspection and Yes full ROM Resp Effort & Inspection: normal respiratory effort and able to speak in complete sentences Neuro General: patient oriented x3, moves all extremities and CN's II-XI intact bilaterally Cranial nerves: Yes Equal, round and reactive pupils present Cognition (Neuro): normal cognition Extrem General: Yes normal to inspection, Yes full ROM and Yes capillary refill normal Psych Appearance: grossly normal Mental Status: mental status grossly normal Affect: Indifferent affect present Attitude: Guarded attititude/behavior present Thought content: Homicidality present Course Reevaluation(s) Reevaluation #1: Time: 06:44 Date: 01/29/25 Provider: Jasvir Elizondo MD Patient in physician observation for psychiatric evaluation.? No acute events reported overnight. No current complaints. VS stable.? Patient is in bed search status/pending CARE team evaluation. Will continue to monitor. 01/29/2025 1043 Sheridan Cabrera PA-C ---> Patient evaluated by the CARE team. Will be a respite / ACCS bed search. Reevaluation #2: Time: 08:40 Date: 01/30/25 Provider: Katharine Maldonado DO Patient in physician observation for psychiatric evaluation.? No acute events reported overnight. No current complaints. VS stable.? Patient is in bed search status. Will continue to monitor. Reevaluation #3: Time: 10:57 Date: 01/30/25 Provider: Katharine Maldonado DO Physician observation ended at 1057am Patient to be admitted as inpatient to psychiatry. Medications Administered Generic Name Dose Route Start Last Admin Trade Name Freq PRN Reason Stop Dose Admin Clonazepam 1 mg 01/29/25 09:18 01/29/25 19:31 Clonazepam 1 Mg Tablet PO 1 mg TID PRN Administration Anxiety Clonidine HCl 0.1 mg 01/29/25 21:00 01/30/25 08:11 Clonidine Hcl 0.1 Mg Tablet PO 0.1 mg BID GILDARDO Administration Protocol Methadone HCl 100 mg 01/30/25 09:00 01/30/25 08:11 Methadone Hcl 20 Mg/2 Ml Oral.Conc PO 100 mg DAILY GILDARDO Administration Trazodone HCl 100 mg 01/29/25 09:18 01/29/25 20:11 Trazodone Hcl 100 Mg Tablet PO 100 mg BEDTIME PRN Administration Sleep Discontinued Medications Generic Name Dose Route Start Last Admin Trade Name Freq PRN Reason Stop Dose Admin Ibuprofen 800 mg 01/29/25 11:31 01/29/25 11:46 Ibuprofen 800 Mg Tablet PO 01/29/25 11:32 800 mg ONCE ONE Administration Lorazepam 2 mg 01/28/25 22:49 01/28/25 22:54 Lorazepam 1 Mg Tablet PO 01/28/25 22:50 2 mg ONCE ONE Administration Methadone HCl 100 mg 01/29/25 07:39 01/29/25 08:07 Methadone Hcl 20 Mg/2 Ml Oral.Conc PO 01/29/25 07:40 100 mg ONCE ONE Administration Nicotine 14 mg 01/28/25 15:56 01/28/25 16:13 Nicotine 14 Mg Patch.Td24 TRANSDERMA 01/28/25 15:57 14 mg ONCE ONE Administration Nicotine 14 mg 01/29/25 17:08 01/29/25 17:18 Nicotine 14 Mg Patch.Td24 TRANSDERMA 01/29/25 17:09 14 mg ONCE ONE Administration Medical Decision Making Medical Decision Making [facility] Narrative: Patient is a 50 year old assigned male at with a history of opiate use disorder on methadone presenting to the emergency department today with homicidal ideation. Patient's physical exam was as noted in the physical exam portion of this note. Patient's blood work was unremarkable. Patient's EKG was unremarkable. I explained my physical exam findings as well as all test results to the patient. I answered all questions asked by the patient. Patient's disposition will be determined after CARE team evaluation. Patient in physician observation pending CARE team evaluation at 1656. Differential Diagnosis Differential Diagnoses: The differential diagnosis associated with the presentation includes HI Admission/Observation Consideration of admission/observation: Escalation of care including admission/observation considered Patient's disposition will be determined after CARE Team evaluation. Lab Data [facility] Lab Attestation statement: I reviewed the patient's lab results. My interpretation of these results are in the MDM Rationale portion of this note. 01/28/25 16:56 01/28/25 16:56 Labs: Lab Results 01/28/25 01/28/25 Range/Units 16:56 19:12 WBC 6.9 (4.8-10.8) X10*3/uL RBC 4.03 L (4.60-5.80) X10*6/uL Hgb 12.5 L (14.0-18.0) g/dl Hct 37.0 L (42.0-52.0) % MCV 91.8 (80.0-98.0) fL MCH 31.0 (27.0-33.0) pg MCHC 33.8 (31.0-36.0) g/dl RDW 12.1 (11.0-16.0) % Plt Count 197 (160-400) X10*3/uL MPV 10.7 (9.4-12.4) fL Immature Gran % (Auto) 0.1 (0.0-0.4) % Neut % (Auto) 67.0 (45-73) % Lymph % (Auto) 27.2 (20-40) % [place] % (Auto) 5.1 (2-11) % Eos % (Auto) 0.3 (0-4) % Baso % (Auto) 0.3 (0-2) % Lymph # (Auto) 1.9 (1.2-4.9) X10*3/uL [place] # (Auto) 0.4 (0.1-1.2) X10*3/uL Eos # (Auto) 0.0 (0.0-0.4) X10*3/uL Baso # (Auto) 0.0 (0.0-0.2) X10*3/uL Abs Immat Gran (auto) 0.01 (0.00-0.03) X10*3/uL Absolute Neuts (auto) 4.6 (2.0-8.3) x10*3/uL Absolute Nucleated RBC 0.000 (0.0-0.012) X10*3/uL Nucleated RBC % (auto) 0.0 (0.0-0.2) /100WBC Sodium 142 (135-145) mmol/L Potassium 4.1 (3.3-5.1) mmol/L Chloride 106 (96-108) mmol/L Carbon Dioxide 27 (22-29) mmol/L Anion Gap 13 (12-20) BUN 20 H (9-16) mg/dL Creatinine 0.98 (0.5-1.4) mg/dL Estim Creat Clear Calc 115.6 Estimated GFR > 60 Random Glucose 94 (60-115) mg/dL Calcium 9.3 (8.4-10.2) mg/dL Total Bilirubin 0.3 (0.0-1.0) mg/dL AST 28 (5-37) U/L ALT 19 (0-40) U/L Alkaline Phosphatase 86 (39-117) U/L Total Protein 7.9 (6.5-8.0) g/dL Albumin 4.4 (3.5-5.0) g/dL Urine Color Yellow Urine Appearance Clear Urine pH 5.5 (5.0-9.0) Ur Specific [place] 1.025 (1.005-1.025) Urine Protein Trace (Neg-Trace) mg/dL Urine Glucose (UA) Negative (Negative) mg/dL Urine Ketones Trace (Negative) mg/dL Urine Blood Negative (Negative) Urine Nitrite Negative (Negative) Ur Leukocyte Esterase Trace H (Negative) Urine RBC 0-2 (0-2) /HPF Urine WBC 0-5 (0-5) /HPF Ur Squamous Epith Cells 3-5 (0-2) /HPF Urine Bacteria Trace (None Seen) Hyaline Casts 6-10 (0-2) /LPF Salicylates < 5.0 L (15-30) mg/dL Urine Opiates Screen POSITIVE H (Not Detect) Ur Buprenorphine Scrn Not Detected (Not Detect) ng/mL Ur Oxycodone Screen Not Detected (Not Detect) ng/mL Urine Methadone Screen Positive H (Not Detect) ng/mL Urine Fentanyl Screen POSITIVE H (Not Detect) Acetaminophen < 3 (<30) mcg/mL Ur Barbiturates Screen Not Detected (Not Detect) Ur Phencyclidine Scrn Not Detected (Not Detect) Ur Amphetamines Screen Not Detected (Not Detect) U Benzodiazepines Scrn POSITIVE H (Not Detect) Urine Cocaine Screen POSITIVE H (Not Detect) U Marijuana (THC) Screen Not Detected (Not Detect) Ethyl Alcohol < 10 mg/dL Independent Interpretation I performed an independent interpretation of an: EKG Interpretation: I independently interpreted this EKG and am in agreement with the below findings: Vent. Rate: 73 BPM Atrial Rate: 73 BPM P-R Int: 162 ms QRS Dur: 92 ms QT Int: 416 ms P-R-T Axes: 45 2 32 degrees QTcB Int: 458 ms Normal sinus rhythm Normal ECG When compared with ECG of 27-Nov-2024 16:42, No significant change was found DD/ 1633 Independent Historian Clinical information obtained from an independent historian. History obtained from or confirmed by: EMS (EMS provided additional history and confirmed the history provided by the patient.) Critical Care Time Critical Care Time Critical Care Time: Yes Total Critical Care Time: 32 Attestation: I spent 32 minutes of Critical Care Time with this patient. This does not include time spent on separately reported billable procedures. Discharge Plan Discharge Clinical Impression: Homicidal ideation Patient Disposition: Admitted As Inpatient Interventions: [place]-Suicide Risk Severity Scale Last Done: 01/29/25 21:43 Admission Worksheet (ED) Last Done: 01/30/25 10:53
[2025-01-28] MEDS: Nicotine 14 MG PATCH.TD24 TRANSDERMA (16:13)
--- NOTE | 2025-01-28 16:32 | MHC.EDTECH ---
Belongings secured in [facility]
[2025-01-28 17:01] LABS: MANUAL DIFF FLAG NO
[2025-01-28 17:03] LABS: Hematocrit 37.0 % (42.0-52.0); Hemoglobin 12.5 g/dl (14.0-18.0); Imm Gran Abs Auto 0.01 X10*3/uL (0.00-0.03); Imm Gran Pct Auto 0.1 % (0.0-0.4); Lymphocytes Absolute Auto 1.9 X10*3/uL (1.2-4.9); Mean Corpuscular HGB Conc 33.8 g/dl (31.0-36.0); Mean Corpuscular Hemoglobin 31.0 pg (27.0-33.0); Mean Corpuscular Volume 91.8 fL (80.0-98.0); NRBC Abs Auto 0.000 X10*3/uL (0.0-0.012); NRBC Pct Auto 0.0 /100WBC (0.0-0.2); Platelet Count 197 X10*3/uL (160-400); Red Blood Count 4.03 X10*6/uL (4.60-5.80); White Blood Count 6.9 X10*3/uL (4.8-10.8)
[2025-01-28 17:20] LABS: Acetaminophen LAB < 3 mcg/mL (<30); Salicylate < 5.0 mg/dL (15-30)
[2025-01-28 17:21] LABS: Alanine Aminotransferase 19 U/L (0-40); Albumin Level 4.4 g/dL (3.5-5.0); Alkaline Phosphatase 86 U/L (39-117); Anion Gap 13 (12-20); Aspartate Amino Transferase 28 U/L (5-37); Blood Urea Nitrogen 20 mg/dL (9-16); Calcium 9.3 mg/dL (8.4-10.2); Carbon Dioxide 27 mmol/L (22-29); Chloride 106 mmol/L (96-108); Creatinine Clr Calc Pharmacy 115.6; Estimated Glomerular Filt Rate > 60; Potassium 4.1 mmol/L (3.3-5.1); Sodium 142 mmol/L (135-145); Total Protein 7.9 g/dL (6.5-8.0)
[2025-01-28 17:48] VITALS: RESP 14; TEMP 36.8
[2025-01-28 19:22] LABS: Appearance Urine Clear; Glucose Urine UA Negative (Negative); PH 5.5 (5.0-9.0); Specific Gravity - Urine 1.025 (1.005-1.025); UMIC TRIGGER UA YES
[2025-01-28 19:33] LABS: Cannabinoid Screen Urine Not Detected (Not Detect)
[2025-01-28 21:42] VITALS: BP 156/80; PULSE 75; RESP 16; TEMP 36.6; O2SAT 95
[2025-01-29 06:23] VITALS: BP 164/84; PULSE 93; RESP 16; TEMP 36.6; O2SAT 97
--- NOTE | 2025-01-29 07:29 | PC.NURSE ---
Assumed care of patient at 0645, patient appears to be in no apparent distress this am, requesting methadone dose (methadone verified and placed in med rec). Patient verbalizes understanding of plan of care for CARE team omega
[2025-01-29 07:30] VITALS: BP 173/83; PULSE 62; RESP 20; TEMP 36.7; O2SAT 96
--- NOTE | 2025-01-29 07:32 | HE.PHANOTE ---
METHADONE Pt last received at [facility] ([phone]) 100mg on 01/28/25 0753 with 2 take home bottles per Felisha at facility.
[2025-01-29] MEDS: methADONE HCl 20 MG/2 ML ORAL.CONC 100 MG PO (08:07)
--- NOTE | 2025-01-29 11:53 | PHA.MEDREC ---
Pharmacy Consult ? Medication Reconciliation Pharmacy reviewed med rec done by nursing. The medications verified in the med rec were confirmed by the pt. Pt confirmed he takes a Multivitamin 1qd, and a Calcium-Magnesium tab (1 QD) and a Melatonin tab (1 QDHS prn sleep) but didn't know the dose of them at this time.
[2025-01-29 14:56] VITALS: BP 150/72; PULSE 76; RESP 16; TEMP 36.5; O2SAT 96
[2025-01-29] MEDS: Nicotine 14 MG PATCH.TD24 TRANSDERMA (17:18)
--- NOTE | 2025-01-29 17:35 | MHC.CARE ---
Pt was referred to [facility]-- referral was followed up on and Pt has been declined. Pt referred to [facility]S. Spoke with [facility] crisis who is verifying with the ACCS team if referral has been received. CARE Team to follow-up on this referral.
[2025-01-29 20:11] VITALS: BP 153/91; PULSE 66; RESP 18; TEMP 36.9; O2SAT 96
--- NOTE | 2025-01-29 20:14 | MHC.CARE ---
Pt will be adult IPLOC. Section 12a in chart for safety
[2025-01-30 06:19] VITALS: RESP 16
--- NOTE | 2025-01-30 07:15 | PC.NURSE ---
Assumed care of this patient at 0650. Pt appears to be sleeping at this time, respirations are even and unlabored. Pt does not appear to be in any distress. Plan of care ongoing.
[2025-01-30] MEDS: methADONE HCl 20 MG/2 ML ORAL.CONC 100 MG PO (08:11)
[2025-01-30 08:15] VITALS: BP 175/97; PULSE 72; RESP 16; TEMP 36.2; O2SAT 99
--- NOTE | 2025-01-30 09:54 | MHC.EDTECH ---
Patient belongings moved from [facility] to pod locker 3.
[2025-01-30 11:05] VITALS: BP 160/96; PULSE 70; RESP 16; TEMP 37.3; O2SAT 98
[2025-01-30 11:38] VITALS: BMI 32.9
--- NOTE | 2025-01-30 12:25 | PC.ADMIT ---
Addendum entered and electronically signed by Chloe Arnold RN 01/30/25 16:19: Pt reports that he has never been hospitalized in a Behavioral Health unit at [facility] before, states thoughts are clearer at present time. States he has a hx of behavioral health hospitalization at [facility]. Signed consents for release of information with friend, Yanni De La Vega present. Requested and received Tylenol 650mg po for c/o back and BLE pain rating #6 and Klonopin 1mg po for anxiety at 1550, reporting both related to opiate withdrawal. COWS assessment done at 1608, result #5. Irritability noted after requesting phone and informed staff found needles in belongings during inventory check and inventory check was stopped. Unable to retrieve phone at present time as it is in belongings with needles. Requested to submit 3 day notice and completed this task. Original Note: This 50 y.o. male was presented by [facility] Care Team with Dx: Unspecified depressive d/o, Opioid use d/o, Cocaine use d/o. Hx prior hospitalizations to [facility] Behavioral Health units. Arrived on unit at 1056 on Section 12A and placed on 15 min safety checks. Precipitating events to admission: pt presented to [facility] ED via ambulance from the community after being seen by [facility] crisis. Pt reported HI towards a friend/neighbor after finding out his girlfriend cheated on him with this person. Pt had been attending [facility] when he expressed HI towards the neighbor. Reported recent relapse on opiates. Tox screen positive for Opiates, Methadone, Fentanyl, Benzos, Cocaine which pt acknowledges use. States he is on Methadone maintenance and prescribed Klonopin. ETOH <10, pt denies use. Pt stated he did not want to talk about many things during admission process and just wanted to lie down. Irritability noted during admission process. Acknowledges depression/anxiety. Denies SI, continues to report HI towards neighbor/friend. States he did not want to go back home because he may hurt his neighbor. States he has hurt people in the past, would not clarify how to prescriber. Refused to sign any paperwork, requesting that his friend Yanni De La Vega be called to be present when paperwork signed. Yanni De La Vega called unit and pt gave verbal consent to speak to her. Denies AH/VH. Skin check/exchange mechanic done on admission with 2 staff present; feet calloused and dry. Admission orders received from prescriber, Anu Mehta. Legal status Section 12B after meeting with Anu Mehta. Declined to sign Temporary Involuntary Hospitalization form.
--- NOTE | 2025-01-30 14:27 | HO.PSYADMNOT ---
[facility] Date of Service: 01/30/25 Chief Complaint: Crisis Sources of Information: patient interviewed, chart reviewed and crisis/core team assessment reviewed HPI Subjective Notes: [place] Warning and Conditional Voluntary Narrative: Patient is a 50-year-old male with history of MDD, opiate use disorder and cocaine use disorder who presented to ER via ambulance due to homicidal ideation towards a friend after finding out his girlfriend was cheating on him with his friend. Per crisis report, patient reports he was at an IOP and expressed homicidal ideation towards this friend who he believes has been sleeping with his girlfriend. Patient also reports they recently relapsed on opiates. He denies SI/VH/AH. He reports appetite and sleep are good. Patient reports he has been in recovery and recently relapsed on substances due to relationship issues and increased depression. Patient has outpatient psychiatric providers through [facility]. Recent hospitalization from [facility] in November 2024. Collateral obtained from patient's friend, Yanni, who reports patient was doing well and was in recovery. She reports this week he relapsed after finding out his girlfriend was cheating on him and also he recently had contact with his estranged daughter and feels this triggered his relapse and depression. During admission assessment, patient presents alert and oriented x3. Calm and cooperative. Guarded. Patient reports feeling angry ; patient stated, I don't want to go back home because I'm worried about what I'm going to do. I just want to go lay down. I'm not in the mind set to talk . Patient reports he has been using IV heroin and cocaine for the last 2 weeks. Utox positive for opiates, methadone, fentanyl, benzodiazepines, cocaine. Patient ended conversation and went to lay down in room. He denies SI/HI/VH/AH. He reports being medication compliant and attending IOP. Past Psychiatric History: History of inpatient psychiatric hospitalization. History of multiple detox admissions. academic coach at [facility]: Mike Nieves IOP: [facility] in [place], [place] Outpatient prescriber: Rivka ([facility]) Does not have outpatient therapist. Medical Evaluation Reviewed: Yes [facility] Medical History (Updated 01/30/25 @ 16:37 by Anu Mehta NP) Opioid use disorder Family History: Patient reports family history of depression and substance use. Social History: Lives alone. Single. One adult daughter. GED. Disability. Substance History: Patient reports he has been using IV heroin and cocaine for the last 2 weeks. Utox positive for opiates, methadone, fentanyl, benzodiazepines, cocaine. Trauma History: Yes Diagnostics Vital Signs (24Hr): Vital Signs - 24 hr 01/29/25 14:56 01/29/25 20:11 01/29/25 20:11 Temperature 97.7 F 98.4 F Pulse Rate 76 66 Respiratory Rate 16 18 Blood Pressure 150/72 H 153/91 H 153/91 H Pulse Oximetry 96 96 Oxygen Delivery Method Room Air Room Air 01/30/25 06:19 01/30/25 08:15 01/30/25 11:05 Temperature 97.1 F 99.1 F Pulse Rate 72 70 Respiratory Rate 16 16 16 Blood Pressure 175/97 H 160/96 H Pulse Oximetry 99 98 Oxygen Delivery Method Room Air Room Air BMI result Body Mass Index 32.9 Labs 01/28/25 16:56 01/28/25 16:56 Labs: Laboratory Results - last 48 hr 01/28/25 01/28/25 16:56 19:12 WBC 6.9 RBC 4.03 L Hgb 12.5 L Hct 37.0 L MCV 91.8 MCH 31.0 MCHC 33.8 RDW 12.1 Plt Count 197 MPV 10.7 Immature Gran % (Auto) 0.1 Neut % (Auto) 67.0 Lymph % (Auto) 27.2 [place] % (Auto) 5.1 Eos % (Auto) 0.3 Baso % (Auto) 0.3 Lymph # (Auto) 1.9 [place] # (Auto) 0.4 Eos # (Auto) 0.0 Baso # (Auto) 0.0 Abs Immat Gran (auto) 0.01 Absolute Neuts (auto) 4.6 Absolute Nucleated RBC 0.000 Nucleated RBC % (auto) 0.0 Sodium 142 Potassium 4.1 Chloride 106 Carbon Dioxide 27 Anion Gap 13 BUN 20 H Creatinine 0.98 Estim Creat Clear Calc 115.6 Estimated GFR > 60 Random Glucose 94 Calcium 9.3 Total Bilirubin 0.3 AST 28 ALT 19 Alkaline Phosphatase 86 Total Protein 7.9 Albumin 4.4 Urine Color Yellow Urine Appearance Clear Urine pH 5.5 Ur Specific [place] 1.025 Urine Protein Trace Urine Glucose (UA) Negative Urine Ketones Trace Urine Blood Negative Urine Nitrite Negative Ur Leukocyte Esterase Trace H Urine RBC 0-2 Urine WBC 0-5 Ur Squamous Epith Cells 3-5 Urine Bacteria Trace Hyaline Casts 6-10 Salicylates < 5.0 L Urine Opiates Screen POSITIVE H Ur Buprenorphine Scrn Not Detected Ur Oxycodone Screen Not Detected Urine Methadone Screen Positive H Urine Fentanyl Screen POSITIVE H Acetaminophen < 3 Ur Barbiturates Screen Not Detected Ur Phencyclidine Scrn Not Detected Ur Amphetamines Screen Not Detected U Benzodiazepines Scrn POSITIVE H Urine Cocaine Screen POSITIVE H U Marijuana (THC) Screen Not Detected Ethyl Alcohol < 10 Meds/Allergies Meds Home Medications ?Medication ?Instructions ?Recorded ?Confirmed ?Type clonazepam 1 mg tablet 1 mg PO TID PRN Anxiety 11/27/24 01/28/25 History clonidine HCl 0.1 mg tablet 0.1 mg PO BID PRN anxiety/bp 11/27/24 01/29/25 History trazodone 50 mg tablet 100 mg PO BEDTIME PRN Sleep 11/27/24 01/28/25 History methadone 10 mg/mL oral 100 mg PO DAILY 11/28/24 01/29/25 History concentrate (Methadone Intensol) calcium 500 mg 1 tab PO BID 01/29/25 01/29/25 History (carb,gluconate)-magnesium 250 mg (gluc,oxide) tablet melatonin 3 mg tablet 3 mg PO BEDTIME 01/29/25 01/29/25 History multivitamin 1 tab PO DAILY 01/29/25 01/29/25 History Allergies Allergies Allergy/AdvReac Type Severity Reaction Status Date / Time No Known Allergies Allergy Verified 01/28/25 17:05 Mental Status Exam Mental Status Exam Narrative: Pt is alert and oriented; behavior is cooperative and calm, guarded; dressed in casual attire; mood is described as angry ; eye contact appropriate; Speech is normal rate, volume and not pressured; thought process is organized; Thought content is on tx; denies SI/HI/VH/AH. Assessment & Plan Assessment & Plan (1) MDD (major depressive disorder), recurrent episode: Status: Acute Code(s): F33.9 - Major depressive disorder, recurrent, unspecified (2) PTSD (post-traumatic stress disorder): Status: Acute Code(s): F43.10 - Post-traumatic stress disorder, unspecified (3) Cocaine use disorder: Status: Acute Code(s): F14.10 - Cocaine abuse, uncomplicated (4) Opioid use disorder: Status: Acute Code(s): F11.90 - Opioid use, unspecified, uncomplicated Plan Patient is a 50-year-old male with history of MDD, opiate use disorder and cocaine use disorder who presented to ER via ambulance due to homicidal ideation towards a friend after finding out his girlfriend was cheating on him with his friend. Plan: CV 15 minute safety checks Continue home medications Start: Zyprexa 5mg PO Q4HR PRN agitation Obtain collateral Encourage groups Discharge planning Patient educated on: diagnosis and medication risk/benefits Reason for continued inpatient stay Substantial Risk for: med/psych decompensation Statement Statement: I have reviewed the history and physical and performed a pertinent examination on my patient. No changes have occurred unless specified. If the History and Physical was not performed prior to admission, the Hospitalist's service will be consulted for completing the admission physical. Time Spent With Patient Time: Total time managing care of this patient today _60___ minutes.
--- NOTE | 2025-01-30 15:12 | PC.NURSE ---
Conditional voluntary signed with provider 01/30
[2025-01-30] MEDS: Nicotine 21 MG PATCH.TD24 TRANSDERMA (15:53)
[2025-01-30 16:08] VITALS: PULSE 84
--- NOTE | 2025-01-30 16:55 | PC.NURSE ---
Submitted 3 day notice, up on Tuesday02/04/25. Treatment team notified.
[2025-01-30 20:00] VITALS: BP 161/72; PULSE 59; RESP 18; TEMP 37.4; O2SAT 95
[2025-01-30 20:26] VITALS: BP 161/72
[2025-01-31 07:00] VITALS: BMI 33.4
[2025-01-31 07:43] VITALS: BP 166/81; PULSE 69; RESP 16; TEMP 36.6; O2SAT 97
[2025-01-31] MEDS: methADONE HCl 20 MG/2 ML ORAL.CONC 100 MG PO (08:06)
[2025-01-31 09:02] VITALS: BP 166/81
--- NOTE | 2025-01-31 09:03 | P.PNPSI_ITS ---
Subjective Subjective Date of Service: 01/31/25 Reason For Visit: Crisis Subjective Notes: 3 Day Interim History: Active on unit. medication compliant. Patient reports feeling anxious; pt stated, I'm thinking about hurting him but I wouldn't act on it. I need to come up with a plan to tell my friend to stay away from me. I want to see if I can get a different apartment since he lives near me . Patient reports he plans on continuing to attend IOP when discharged. denies SI/HI/VH/AH. 3 day notice up on 02/04/25. Continue current tx plan. Medication Compliance: Yes Side effects from medications: No Attending Groups: Intermittent Mental Status Exam Mental Status Exam Narrative: Pt is alert and oriented; behavior is cooperative and calm, friendly; dressed in casual attire; mood is described as anxious ; eye contact appropriate; Speech is normal rate, volume and not pressured; thought process is organized; Thought content is on tx; denies SI/HI/VH/AH. Diagnostics Vital Signs (24Hr): Vital Signs - 24 hr 01/30/25 11:05 01/30/25 20:00 01/30/25 20:26 Temperature 99.1 F 99.3 F Pulse Rate 70 59 Respiratory Rate 16 18 Blood Pressure 160/96 H 161/72 H 161/72 H Pulse Oximetry 98 95 Oxygen Delivery Method Room Air Room Air 01/31/25 07:43 Temperature 97.9 F Pulse Rate 69 Respiratory Rate 16 Blood Pressure 166/81 H Pulse Oximetry 97 Oxygen Delivery Method Room Air BMI result Body Mass Index 32.9 Labs 01/28/25 16:56 01/31/25 08:13 Medications Medications Current Medications Acetaminophen (Acetaminophen 325 Mg Tablet) 650 mg PO Q6H PRN PRN Reason: Headache/Pain, Scale 1-10 Last Admin: 01/30/25 15:49 Dose: 650 mg Al Hydroxide/Mg Hydroxide (Magnesium Hydrox/Alum Hydrox 30 Ml Oral.Susp) 30 ml PO Q6H PRN PRN Reason: Heartburn/Nausea Baclofen (Baclofen 10 Mg Tablet) 10 mg PO TID [facility] Last Admin: 01/30/25 20:33 Dose: 10 mg Clonazepam (Clonazepam 1 Mg Tablet) 1 mg PO BID PRN PRN Reason: Anxiety Last Admin: 01/30/25 15:50 Dose: 1 mg Clonidine HCl (Clonidine Hcl 0.1 Mg Tablet) 0.1 mg PO BID [facility]; Protocol Last Admin: 01/30/25 20:26 Dose: 0.1 mg Fluoxetine HCl (Fluoxetine Hcl 20 Mg Capsule) 40 mg PO DAILY [facility] Last Admin: 01/30/25 15:39 Dose: 40 mg Hydroxyzine HCl (Hydroxyzine Hcl 50 Mg Tablet) 50 mg PO TID PRN PRN Reason: mild anxiety Magnesium Hydroxide (Milk Of Magnesia 30 Ml Oral.Susp) 30 ml PO DAILY PRN PRN Reason: Constipation Melatonin (Melatonin 3 Mg Tablet) 3 mg PO BEDTIME [facility] Last Admin: 01/30/25 20:33 Dose: 3 mg Methadone HCl (Methadone Hcl 20 Mg/2 Ml Oral.Conc) 100 mg PO DAILY@0800 [facility] Multivitamins/Vitamin C (Multivitamin Tablet) 1 tab PO DAILY [facility] Nicotine (Nicotine 21 Mg Patch.Td24) 21 mg TRANSDERMA DAILY [facility] Last Admin: 01/30/25 15:53 Dose: 21 mg Nicotine Polacrilex (Nicotine Polacrilex 2 Mg Gum) 4 mg BUCCAL Q2H PRN PRN Reason: Nicotine Cravings Ondansetron HCl (Ondansetron Odt 8 Mg Tab.Rapdis) 8 mg TRANSLINGU Q12H PRN PRN Reason: Nausea and Vomiting Trazodone HCl (Trazodone Hcl 100 Mg Tablet) 100 mg PO BEDTIME PRN PRN Reason: Sleep Last Admin: 01/30/25 20:33 Dose: 100 mg Allergies Allergies Allergy/AdvReac Type Severity Reaction Status Date / Time No Known Allergies Allergy Verified 01/28/25 17:05 Assessment & Plan Assessment & Plan (1) MDD (major depressive disorder), recurrent episode: Status: Acute Code(s): F33.9 - Major depressive disorder, recurrent, unspecified (2) PTSD (post-traumatic stress disorder): Status: Acute Code(s): F43.10 - Post-traumatic stress disorder, unspecified (3) Cocaine use disorder: Status: Acute Code(s): F14.10 - Cocaine abuse, uncomplicated (4) Opioid use disorder: Status: Acute Code(s): F11.90 - Opioid use, unspecified, uncomplicated Plan Patient is a 50-year-old male with history of MDD, opiate use disorder and cocaine use disorder who presented to ER via ambulance due to homicidal ideation towards a friend after finding out his girlfriend was cheating on him with his friend. Plan: CV 15 minute safety checks Continue home medications Start: Zyprexa 5mg PO Q4HR PRN agitation Obtain collateral Encourage groups Discharge planning 01/31: Active on unit. medication compliant. Patient reports feeling anxious; pt stated, I'm thinking about hurting him but I wouldn't act on it. I need to come up with a plan to tell my friend to stay away from me. I want to see if I can get a different apartment since he lives near me . Patient reports he plans on continuing to attend IOP when discharged. denies SI/HI/VH/AH. 3 day notice up on 02/04/25. Continue current tx plan. Patient educated on: diagnosis, medication risk/benefits and therapeutic strategies Reason for continued inpatient stay Substantial Risk for: med/psych decompensation Time Spent With Patient Time: Total time managing care of this patient today _20___ minutes.
[2025-01-31] MEDS: Nicotine 21 MG PATCH.TD24 TRANSDERMA (09:05)
[2025-01-31 09:12] LABS: Hemoglobin A1C 93.1799 umol/L; Total Hemoglobin (HGBA1C) 3481.8888 umol/L
[2025-01-31 09:17] LABS: Alanine Aminotransferase 20 U/L (0-40); Albumin Level 4.4 g/dL (3.5-5.0); Alkaline Phosphatase 81 U/L (39-117); Anion Gap 11 (12-20); Aspartate Amino Transferase 22 U/L (5-37); Blood Urea Nitrogen 22 mg/dL (9-16); Calcium 9.6 mg/dL (8.4-10.2); Carbon Dioxide 30 mmol/L (22-29); Chloride 103 mmol/L (96-108); Cholesterol 155 mg/dL (<200); Creatinine Clr Calc Pharmacy 150.0; Estimated Glomerular Filt Rate > 60; HDL Cholesterol 33 mg/dL (>40); Potassium 4.4 mmol/L (3.3-5.1); Sodium 140 mmol/L (135-145); Total Protein 7.9 g/dL (6.5-8.0); Triglycerides 119 mg/dL (<150)
[2025-01-31 19:30] VITALS: BP 144/80; PULSE 85; RESP 18; TEMP 37.1; O2SAT 96
[2025-01-31 20:25] VITALS: BP 144/80
--- NOTE | 2025-01-31 23:26 | PC.NURSE ---
Pt appears to be sleeping soundly at this time, Restly comfortably.
[2025-02-01 07:25] VITALS: BP 150/78; PULSE 58; RESP 18; TEMP 36.7; O2SAT 99
[2025-02-01] MEDS: methADONE HCl 20 MG/2 ML ORAL.CONC 100 MG PO (07:55)
[2025-02-01] MEDS: Nicotine 21 MG PATCH.TD24 TRANSDERMA (08:28)
[2025-02-01 08:30] VITALS: BP 157/79
--- NOTE | 2025-02-01 08:55 | P.PNPSI_ITS ---
Subjective Subjective Date of Service: 02/01/25 Reason For Visit: Crisis Subjective Notes: 3 Day Interim History: Active on unit. medication compliant. Patient reports feeling much better ; pt stated, I'm laughing and smiling. I woke up feeling good. I'm not having any thoughts of wanting to hurt anyone . denies SI/HI/VH/AH. patient reports sleeping well. 3 day notice up on 02/04/25. Continue current tx plan. Medication Compliance: Yes Side effects from medications: No Attending Groups: Intermittent Mental Status Exam Mental Status Exam Narrative: Pt is alert and oriented; behavior is cooperative and calm, friendly; dressed in casual attire; mood is described as good ; eye contact appropriate; Speech is normal rate, volume and not pressured; thought process is organized; Thought content is on discharge; denies SI/HI/VH/AH. Diagnostics Vital Signs (24Hr): Vital Signs - 24 hr 01/31/25 09:02 01/31/25 19:30 01/31/25 20:25 Temperature 98.8 F Pulse Rate 85 Respiratory Rate 18 Blood Pressure 166/81 H 144/80 H 144/80 H Pulse Oximetry 96 Oxygen Delivery Method Room Air 02/01/25 07:25 02/01/25 08:30 Temperature 98.1 F Pulse Rate 58 Respiratory Rate 18 Blood Pressure 150/78 H 157/79 H Pulse Oximetry 99 Oxygen Delivery Method Room Air BMI result Body Mass Index 33.4 Labs 01/28/25 16:56 01/31/25 08:13 Labs: Laboratory Results - last 48 hr 01/31/25 08:13 Sodium 140 Potassium 4.4 Chloride 103 Carbon Dioxide 30 H Anion Gap 11 L BUN 22 H Creatinine 0.75 Estim Creat Clear Calc 150.0 Estimated GFR > 60 Random Glucose 92 Estimat Average Glucose 85 Hemoglobin A1c % 4.6 Calcium 9.6 Total Bilirubin 0.4 AST 22 ALT 20 Alkaline Phosphatase 81 Total Protein 7.9 Albumin 4.4 Triglycerides 119 Cholesterol 155 LDL Cholesterol, Calc 99 HDL Cholesterol 33 L Medications Medications Current Medications Acetaminophen (Acetaminophen 325 Mg Tablet) 650 mg PO Q6H PRN PRN Reason: Headache/Pain, Scale 1-10 Last Admin: 01/31/25 20:23 Dose: 650 mg Al Hydroxide/Mg Hydroxide (Magnesium Hydrox/Alum Hydrox 30 Ml Oral.Susp) 30 ml PO Q6H PRN PRN Reason: Heartburn/Nausea Baclofen (Baclofen 10 Mg Tablet) 10 mg PO TID [facility] Last Admin: 02/01/25 08:28 Dose: 10 mg Clonazepam (Clonazepam 1 Mg Tablet) 1 mg PO BID PRN PRN Reason: Anxiety Last Admin: 01/31/25 20:25 Dose: 1 mg Clonidine HCl (Clonidine Hcl 0.1 Mg Tablet) 0.1 mg PO BID [facility]; Protocol Last Admin: 02/01/25 08:30 Dose: 0.1 mg Fluoxetine HCl (Fluoxetine Hcl 20 Mg Capsule) 40 mg PO DAILY [facility] Last Admin: 02/01/25 08:28 Dose: 40 mg Hydroxyzine HCl (Hydroxyzine Hcl 50 Mg Tablet) 50 mg PO TID PRN PRN Reason: mild anxiety Last Admin: 01/31/25 21:16 Dose: 50 mg Ibuprofen (Ibuprofen 600 Mg Tablet) 600 mg PO Q8H PRN PRN Reason: Pain, Moderate(Pain Scale 4-6) Last Admin: 01/31/25 18:20 Dose: 600 mg Magnesium Hydroxide (Milk Of Magnesia 30 Ml Oral.Susp) 30 ml PO DAILY PRN PRN Reason: Constipation Melatonin (Melatonin 3 Mg Tablet) 3 mg PO BEDTIME [facility] Last Admin: 01/31/25 20:25 Dose: 3 mg Methadone HCl (Methadone Hcl 20 Mg/2 Ml Oral.Conc) 100 mg PO DAILY@0800 [facility] Last Admin: 02/01/25 07:55 Dose: 100 mg Multivitamins/Vitamin C (Multivitamin Tablet) 1 tab PO DAILY [facility] Last Admin: 02/01/25 08:28 Dose: 1 tab Nicotine (Nicotine 21 Mg Patch.Td24) 21 mg TRANSDERMA DAILY [facility] Last Admin: 02/01/25 08:28 Dose: 21 mg Nicotine Polacrilex (Nicotine Polacrilex 2 Mg Gum) 4 mg BUCCAL Q2H PRN PRN Reason: Nicotine Cravings Last Admin: 01/31/25 18:20 Dose: 4 mg Ondansetron HCl (Ondansetron Odt 8 Mg Tab.Rapdis) 8 mg TRANSLINGU Q12H PRN PRN Reason: Nausea and Vomiting Trazodone HCl (Trazodone Hcl 100 Mg Tablet) 100 mg PO BEDTIME PRN PRN Reason: Sleep Last Admin: 01/31/25 20:26 Dose: 100 mg Allergies Allergies Allergy/AdvReac Type Severity Reaction Status Date / Time No Known Allergies Allergy Verified 01/28/25 17:05 Assessment & Plan Assessment & Plan (1) MDD (major depressive disorder), recurrent episode: Status: Acute Code(s): F33.9 - Major depressive disorder, recurrent, unspecified (2) PTSD (post-traumatic stress disorder): Status: Acute Code(s): F43.10 - Post-traumatic stress disorder, unspecified (3) Cocaine use disorder: Status: Acute Code(s): F14.10 - Cocaine abuse, uncomplicated (4) Opioid use disorder: Status: Acute Code(s): F11.90 - Opioid use, unspecified, uncomplicated Plan Patient is a 50-year-old male with history of MDD, opiate use disorder and cocaine use disorder who presented to ER via ambulance due to homicidal ideation towards a friend after finding out his girlfriend was cheating on him with his friend. Plan: CV 15 minute safety checks Continue home medications Start: Zyprexa 5mg PO Q4HR PRN agitation Obtain collateral Encourage groups Discharge planning 01/31: Active on unit. medication compliant. Patient reports feeling anxious; pt stated, I'm thinking about hurting him but I wouldn't act on it. I need to come up with a plan to tell my friend to stay away from me. I want to see if I can get a different apartment since he lives near me . Patient reports he plans on continuing to attend IOP when discharged. denies SI/HI/VH/AH. 3 day notice up on 02/04/25. Continue current tx plan. 02/01: Active on unit. medication compliant. Patient reports feeling much better ; pt stated, I'm laughing and smiling. I woke up feeling good. I'm not having any thoughts of wanting to hurt anyone . denies SI/HI/VH/AH. patient reports sleeping well. 3 day notice up on 02/04/25. Continue current tx plan. Patient educated on: diagnosis, medication risk/benefits and therapeutic strategies Reason for continued inpatient stay Substantial Risk for: med/psych decompensation Time Spent With Patient Time: Total time managing care of this patient today _20___ minutes.
[2025-02-01 19:24] VITALS: BP 140/82; PULSE 68; RESP 18; TEMP 36.9; O2SAT 96
[2025-02-02 07:53] VITALS: BP 136/70; PULSE 61; RESP 16; TEMP 36.9; O2SAT 95
[2025-02-02] MEDS: methADONE HCl 20 MG/2 ML ORAL.CONC 100 MG PO (08:12)
[2025-02-02] MEDS: Nicotine 21 MG PATCH.TD24 TRANSDERMA (08:23)
--- NOTE | 2025-02-02 17:29 | HO.PSYCHPN ---
Subjective Subjective Date of Service: 02/02/25 Reason For Visit: Crisis Interim History: wants to discharge. no issues otherwise. per staff, low scores on COWS, now DCed. denies psych Sx. sobriety focus. wants D/C. taking meds. slept 8 hours. 3-day up tuesday. Mental Status Exam Mental Status Exam Narrative: Pt is alert and oriented; behavior is cooperative and calm, friendly; dressed in casual attire; mood is described as good; eye contact appropriate; Speech is normal rate, volume and not pressured; thought process is organized; Thought content is on discharge; denies SI/HI/VH/AH. Diagnostics Vital Signs (24Hr): Vital Signs - 24 hr 02/01/25 19:24 02/02/25 07:53 Temperature 98.5 F 98.5 F Pulse Rate 68 61 Respiratory Rate 18 16 Blood Pressure 140/82 H 136/70 Pulse Oximetry 96 95 Oxygen Delivery Method Room Air Room Air BMI result Body Mass Index 33.4 Labs 01/28/25 16:56 01/31/25 08:13 Medications Medications Current Medications Acetaminophen (Acetaminophen 325 Mg Tablet) 650 mg PO Q6H PRN PRN Reason: Headache/Pain, Scale 1-10 Last Admin: 01/31/25 20:23 Dose: 650 mg Al Hydroxide/Mg Hydroxide (Magnesium Hydrox/Alum Hydrox 30 Ml Oral.Susp) 30 ml PO Q6H PRN PRN Reason: Heartburn/Nausea Baclofen (Baclofen 10 Mg Tablet) 10 mg PO TID [facility] Last Admin: 02/02/25 15:06 Dose: 10 mg Clonazepam (Clonazepam 1 Mg Tablet) 1 mg PO BID PRN PRN Reason: Anxiety Last Admin: 02/01/25 20:20 Dose: 1 mg Clonidine HCl (Clonidine Hcl 0.1 Mg Tablet) 0.1 mg PO BID [facility]; Protocol Last Admin: 02/02/25 08:24 Dose: 0.1 mg Fluoxetine HCl (Fluoxetine Hcl 20 Mg Capsule) 40 mg PO DAILY [facility] Last Admin: 02/02/25 08:24 Dose: 40 mg Hydroxyzine HCl (Hydroxyzine Hcl 50 Mg Tablet) 50 mg PO TID PRN PRN Reason: mild anxiety Last Admin: 02/01/25 20:20 Dose: 50 mg Ibuprofen (Ibuprofen 600 Mg Tablet) 600 mg PO Q8H PRN PRN Reason: Pain, Moderate(Pain Scale 4-6) Last Admin: 02/01/25 20:20 Dose: 600 mg Magnesium Hydroxide (Milk Of Magnesia 30 Ml Oral.Susp) 30 ml PO DAILY PRN PRN Reason: Constipation Melatonin (Melatonin 3 Mg Tablet) 3 mg PO BEDTIME [facility] Last Admin: 02/01/25 20:20 Dose: 3 mg Methadone HCl (Methadone Hcl 20 Mg/2 Ml Oral.Conc) 100 mg PO DAILY@0800 [facility] Last Admin: 02/02/25 08:12 Dose: 100 mg Multivitamins/Vitamin C (Multivitamin Tablet) 1 tab PO DAILY [facility] Last Admin: 02/02/25 08:24 Dose: 1 tab Nicotine (Nicotine 21 Mg Patch.Td24) 21 mg TRANSDERMA DAILY [facility] Last Admin: 02/02/25 08:23 Dose: 21 mg Nicotine Polacrilex (Nicotine Polacrilex 2 Mg Gum) 4 mg BUCCAL Q2H PRN PRN Reason: Nicotine Cravings Last Admin: 01/31/25 18:20 Dose: 4 mg Ondansetron HCl (Ondansetron Odt 8 Mg Tab.Rapdis) 8 mg TRANSLINGU Q12H PRN PRN Reason: Nausea and Vomiting Trazodone HCl (Trazodone Hcl 100 Mg Tablet) 100 mg PO BEDTIME PRN PRN Reason: Sleep Last Admin: 02/01/25 20:20 Dose: 100 mg Allergies Allergies Allergy/AdvReac Type Severity Reaction Status Date / Time No Known Allergies Allergy Verified 01/28/25 17:05 Assessment & Plan Assessment & Plan (1) MDD (major depressive disorder), recurrent episode: Status: Acute Code(s): F33.9 - Major depressive disorder, recurrent, unspecified (2) PTSD (post-traumatic stress disorder): Status: Acute Code(s): F43.10 - Post-traumatic stress disorder, unspecified (3) Cocaine use disorder: Status: Acute Code(s): F14.10 - Cocaine abuse, uncomplicated (4) Opioid use disorder: Status: Acute Code(s): F11.90 - Opioid use, unspecified, uncomplicated Plan Patient is a 50-year-old male with history of MDD, opiate use disorder and cocaine use disorder who presented to ER via ambulance due to homicidal ideation towards a friend after finding out his girlfriend was cheating on him with his friend. Plan: CV 15 minute safety checks Continue home medications Start: Zyprexa 5mg PO Q4HR PRN agitation Obtain collateral Encourage groups Discharge planning 01/31: Active on unit. medication compliant. Patient reports feeling anxious; pt stated, I'm thinking about hurting him but I wouldn't act on it. I need to come up with a plan to tell my friend to stay away from me. I want to see if I can get a different apartment since he lives near me . Patient reports he plans on continuing to attend IOP when discharged. denies SI/HI/VH/AH. 3 day notice up on 02/04/25. Continue current tx plan. 02/01: Active on unit. medication compliant. Patient reports feeling much better ; pt stated, I'm laughing and smiling. I woke up feeling good. I'm not having any thoughts of wanting to hurt anyone . denies SI/HI/VH/AH. patient reports sleeping well. 3 day notice up on 02/04/25. Continue current tx plan. 02/02: wants discharge. told will have to wait for tuesday. otherwise no questions or complaints. continue current mgmt. Reason for continued inpatient stay Substantial Risk for: inability to function and rapid decompensation Time Spent With Patient Time: Total time managing care of this patient today ____ minutes.
[2025-02-02 20:30] VITALS: BP 155/85; PULSE 78; RESP 16; TEMP 37.2; O2SAT 97
[2025-02-03 08:00] VITALS: BP 145/83; PULSE 66; RESP 14; TEMP 36.9; O2SAT 92
[2025-02-03] MEDS: methADONE HCl 20 MG/2 ML ORAL.CONC 100 MG PO (08:04)
[2025-02-03] MEDS: Nicotine 21 MG PATCH.TD24 TRANSDERMA (08:19)
--- NOTE | 2025-02-03 16:37 | P.PNPSI_ITS ---
Subjective Subjective Date of Service: 02/03/25 Reason For Visit: Crisis Interim History: calm, pleasant. asking for advice on how to tell the object of his prior HI that he does not wish to have him in his life any longer. feeling back to myself again. planning to discharge tomorrow on 3-day notice. per staff, no issues. Mental Status Exam Mental Status Exam Narrative: Pt is alert and oriented; behavior is cooperative and calm, friendly; dressed in casual attire; mood is described as good; eye contact appropriate; Speech is normal rate, volume and not pressured; thought process is organized; Thought content is on discharge; denies SI/HI/VH/AH. Diagnostics Vital Signs (24Hr): Vital Signs - 24 hr 02/02/25 20:30 02/03/25 08:00 Temperature 98.9 F 98.5 F Pulse Rate 78 66 Respiratory Rate 16 14 Blood Pressure 155/85 H 145/83 H Pulse Oximetry 97 92 Oxygen Delivery Method Room Air Room Air BMI result Body Mass Index 33.4 Labs 01/28/25 16:56 01/31/25 08:13 Medications Medications Current Medications Acetaminophen (Acetaminophen 325 Mg Tablet) 650 mg PO Q6H PRN PRN Reason: Headache/Pain, Scale 1-10 Last Admin: 01/31/25 20:23 Dose: 650 mg Al Hydroxide/Mg Hydroxide (Magnesium Hydrox/Alum Hydrox 30 Ml Oral.Susp) 30 ml PO Q6H PRN PRN Reason: Heartburn/Nausea Baclofen (Baclofen 10 Mg Tablet) 10 mg PO TID [facility] Last Admin: 02/03/25 14:57 Dose: 10 mg Clonazepam (Clonazepam 1 Mg Tablet) 1 mg PO BID PRN PRN Reason: Anxiety Last Admin: 02/02/25 21:14 Dose: 1 mg Clonidine HCl (Clonidine Hcl 0.1 Mg Tablet) 0.1 mg PO BID [facility]; Protocol Last Admin: 02/03/25 08:19 Dose: 0.1 mg Fluoxetine HCl (Fluoxetine Hcl 20 Mg Capsule) 40 mg PO DAILY [facility] Last Admin: 02/03/25 08:20 Dose: 40 mg Hydroxyzine HCl (Hydroxyzine Hcl 50 Mg Tablet) 50 mg PO TID PRN PRN Reason: mild anxiety Last Admin: 02/02/25 21:13 Dose: 50 mg Ibuprofen (Ibuprofen 600 Mg Tablet) 600 mg PO Q8H PRN PRN Reason: Pain, Moderate(Pain Scale 4-6) Last Admin: 02/02/25 21:14 Dose: 600 mg Magnesium Hydroxide (Milk Of Magnesia 30 Ml Oral.Susp) 30 ml PO DAILY PRN PRN Reason: Constipation Melatonin (Melatonin 3 Mg Tablet) 3 mg PO BEDTIME [facility] Last Admin: 02/02/25 21:13 Dose: 3 mg Methadone HCl (Methadone Hcl 20 Mg/2 Ml Oral.Conc) 100 mg PO DAILY@0800 [facility] Last Admin: 02/03/25 08:04 Dose: 100 mg Multivitamins/Vitamin C (Multivitamin Tablet) 1 tab PO DAILY [facility] Last Admin: 02/03/25 08:19 Dose: 1 tab Nicotine (Nicotine 21 Mg Patch.Td24) 21 mg TRANSDERMA DAILY [facility] Last Admin: 02/03/25 08:19 Dose: 21 mg Nicotine Polacrilex (Nicotine Polacrilex 2 Mg Gum) 4 mg BUCCAL Q2H PRN PRN Reason: Nicotine Cravings Last Admin: 01/31/25 18:20 Dose: 4 mg Ondansetron HCl (Ondansetron Odt 8 Mg Tab.Rapdis) 8 mg TRANSLINGU Q12H PRN PRN Reason: Nausea and Vomiting Trazodone HCl (Trazodone Hcl 100 Mg Tablet) 100 mg PO BEDTIME PRN PRN Reason: Sleep Last Admin: 02/02/25 21:14 Dose: 100 mg Allergies Allergies Allergy/AdvReac Type Severity Reaction Status Date / Time No Known Allergies Allergy Verified 01/28/25 17:05 Assessment & Plan Assessment & Plan (1) MDD (major depressive disorder), recurrent episode: Status: Acute Code(s): F33.9 - Major depressive disorder, recurrent, unspecified (2) PTSD (post-traumatic stress disorder): Status: Acute Code(s): F43.10 - Post-traumatic stress disorder, unspecified (3) Cocaine use disorder: Status: Acute Code(s): F14.10 - Cocaine abuse, uncomplicated (4) Opioid use disorder: Status: Acute Code(s): F11.90 - Opioid use, unspecified, uncomplicated Plan Patient is a 50-year-old male with history of MDD, opiate use disorder and cocaine use disorder who presented to ER via ambulance due to homicidal ideation towards a friend after finding out his girlfriend was cheating on him with his friend. Plan: CV 15 minute safety checks Continue home medications Start: Zyprexa 5mg PO Q4HR PRN agitation Obtain collateral Encourage groups Discharge planning 01/31: Active on unit. medication compliant. Patient reports feeling anxious; pt stated, I'm thinking about hurting him but I wouldn't act on it. I need to come up with a plan to tell my friend to stay away from me. I want to see if I can get a different apartment since he lives near me . Patient reports he plans on continuing to attend IOP when discharged. denies SI/HI/VH/AH. 3 day notice up on 02/04/25. Continue current tx plan. 02/01: Active on unit. medication compliant. Patient reports feeling much better ; pt stated, I'm laughing and smiling. I woke up feeling good. I'm not having any thoughts of wanting to hurt anyone . denies SI/HI/VH/AH. patient reports sleeping well. 3 day notice up on 02/04/25. Continue current tx plan. 02/02: wants discharge. told will have to wait for tuesday. otherwise no questions or complaints. continue current mgmt. 02/03: feling back to myself again. 3-day up tomorrow, planning to discharge. denies HI. Reason for continued inpatient stay Substantial Risk for: stable for discharge Time Spent With Patient Time: Total time managing care of this patient today ____ minutes.
[2025-02-03 19:45] VITALS: BP 171/91; PULSE 67; RESP 16; TEMP 37.2; O2SAT 96
[2025-02-03 19:50] VITALS: BP 171/91
[2025-02-03 21:00] VITALS: BP 161/80; PULSE 80; RESP 16; TEMP 37.2; O2SAT 96
[2025-02-04 07:45] VITALS: BP 155/87; PULSE 65; RESP 18; TEMP 36.8; O2SAT 97
[2025-02-04] MEDS: methADONE HCl 20 MG/2 ML ORAL.CONC 100 MG PO (08:03)
[2025-02-04] MEDS: Nicotine 21 MG PATCH.TD24 TRANSDERMA (08:18)
[2025-02-04 08:19] VITALS: BP 155/87
--- NOTE | 2025-02-04 11:06 | HO.PSYCHPN ---
Subjective Subjective Date of Service: 02/04/25 Reason For Visit: Crisis Subjective Notes: Conditional Voluntary Interim History: Active on unit. social with peers. attending groups. Patient retracted 3 day notice. Patient reports he feels he is starting to feel like I'm in a good spot and not angry anymore . He reports sleeping well. denies SI/HI/VH/AH. Plan to discharge if continues to improve. Continue current tx plan. Medication Compliance: Yes Side effects from medications: No Attending Groups: Yes Mental Status Exam Mental Status Exam Narrative: Pt is alert and oriented; behavior is cooperative and calm, friendly; dressed in casual attire; mood is described as good ; eye contact appropriate; Speech is normal rate, volume and not pressured; thought process is organized; Thought content is on discharge; denies SI/HI/VH/AH. Diagnostics Vital Signs (24Hr): Vital Signs - 24 hr 02/03/25 19:45 02/03/25 19:50 02/03/25 21:00 Temperature 98.9 F 98.9 F Pulse Rate 67 80 Respiratory Rate 16 16 Blood Pressure 171/91 H 171/91 H 161/80 H Pulse Oximetry 96 96 Oxygen Delivery Method Room Air 02/04/25 07:45 02/04/25 08:19 Temperature 98.2 F Pulse Rate 65 Respiratory Rate 18 Blood Pressure 155/87 H 155/87 H Pulse Oximetry 97 Oxygen Delivery Method Room Air BMI result Body Mass Index 33.4 Labs 01/28/25 16:56 01/31/25 08:13 Medications Medications Current Medications Acetaminophen (Acetaminophen 325 Mg Tablet) 650 mg PO Q6H PRN PRN Reason: Headache/Pain, Scale 1-10 Last Admin: 01/31/25 20:23 Dose: 650 mg Al Hydroxide/Mg Hydroxide (Magnesium Hydrox/Alum Hydrox 30 Ml Oral.Susp) 30 ml PO Q6H PRN PRN Reason: Heartburn/Nausea Baclofen (Baclofen 10 Mg Tablet) 10 mg PO TID [facility] Last Admin: 02/04/25 08:19 Dose: 10 mg Clonazepam (Clonazepam 1 Mg Tablet) 1 mg PO BID PRN PRN Reason: Anxiety Last Admin: 02/03/25 20:40 Dose: 1 mg Clonidine HCl (Clonidine Hcl 0.1 Mg Tablet) 0.1 mg PO BID [facility]; Protocol Last Admin: 02/04/25 08:19 Dose: 0.1 mg Fluoxetine HCl (Fluoxetine Hcl 20 Mg Capsule) 40 mg PO DAILY [facility] Last Admin: 02/04/25 08:19 Dose: 40 mg Hydroxyzine HCl (Hydroxyzine Hcl 50 Mg Tablet) 50 mg PO TID PRN PRN Reason: mild anxiety Last Admin: 02/03/25 20:40 Dose: 50 mg Ibuprofen (Ibuprofen 600 Mg Tablet) 600 mg PO Q8H PRN PRN Reason: Pain, Moderate(Pain Scale 4-6) Last Admin: 02/03/25 20:41 Dose: 600 mg Magnesium Hydroxide (Milk Of Magnesia 30 Ml Oral.Susp) 30 ml PO DAILY PRN PRN Reason: Constipation Melatonin (Melatonin 3 Mg Tablet) 3 mg PO BEDTIME [facility] Last Admin: 02/03/25 20:39 Dose: 3 mg Methadone HCl (Methadone Hcl 20 Mg/2 Ml Oral.Conc) 100 mg PO DAILY@0800 [facility] Last Admin: 02/04/25 08:03 Dose: 100 mg Multivitamins/Vitamin C (Multivitamin Tablet) 1 tab PO DAILY [facility] Last Admin: 02/04/25 08:19 Dose: 1 tab Nicotine (Nicotine 21 Mg Patch.Td24) 21 mg TRANSDERMA DAILY [facility] Last Admin: 02/04/25 08:18 Dose: 21 mg Nicotine Polacrilex (Nicotine Polacrilex 2 Mg Gum) 4 mg BUCCAL Q2H PRN PRN Reason: Nicotine Cravings Last Admin: 01/31/25 18:20 Dose: 4 mg Ondansetron HCl (Ondansetron Odt 8 Mg Tab.Rapdis) 8 mg TRANSLINGU Q12H PRN PRN Reason: Nausea and Vomiting Trazodone HCl (Trazodone Hcl 100 Mg Tablet) 100 mg PO BEDTIME PRN PRN Reason: Sleep Last Admin: 02/03/25 20:40 Dose: 100 mg Allergies Allergies Allergy/AdvReac Type Severity Reaction Status Date / Time No Known Allergies Allergy Verified 01/28/25 17:05 Assessment & Plan Assessment & Plan (1) MDD (major depressive disorder), recurrent episode: Status: Acute Code(s): F33.9 - Major depressive disorder, recurrent, unspecified (2) PTSD (post-traumatic stress disorder): Status: Acute Code(s): F43.10 - Post-traumatic stress disorder, unspecified (3) Cocaine use disorder: Status: Acute Code(s): F14.10 - Cocaine abuse, uncomplicated (4) Opioid use disorder: Status: Acute Code(s): F11.90 - Opioid use, unspecified, uncomplicated Plan Patient is a 50-year-old male with history of MDD, opiate use disorder and cocaine use disorder who presented to ER via ambulance due to homicidal ideation towards a friend after finding out his girlfriend was cheating on him with his friend. Plan: CV 15 minute safety checks Continue home medications Start: Zyprexa 5mg PO Q4HR PRN agitation Obtain collateral Encourage groups Discharge planning 01/31: Active on unit. medication compliant. Patient reports feeling anxious; pt stated, I'm thinking about hurting him but I wouldn't act on it. I need to come up with a plan to tell my friend to stay away from me. I want to see if I can get a different apartment since he lives near me . Patient reports he plans on continuing to attend [facility] when discharged. denies SI/HI/VH/AH. 3 day notice up on 02/04/25. Continue current tx plan. 02/01: Active on unit. medication compliant. Patient reports feeling much better ; pt stated, I'm laughing and smiling. I woke up feeling good. I'm not having any thoughts of wanting to hurt anyone . denies SI/HI/VH/AH. patient reports sleeping well. 3 day notice up on 02/04/25. Continue current tx plan. 02/02: wants discharge. told will have to wait for tuesday. otherwise no questions or complaints. continue current mgmt. 02/03: feling back to myself again. 3-day up tomorrow, planning to discharge. denies HI. 02/04: Active on unit. social with peers. attending groups. Patient retracted 3 day notice. Patient reports he feels he is starting to feel like I'm in a good spot and not angry anymore . He reports sleeping well. denies SI/HI/VH/AH. Plan to discharge if continues to improve. Continue current tx plan. Patient educated on: diagnosis and medication risk/benefits Reason for continued inpatient stay Substantial Risk for: med/psych decompensation Time Spent With Patient Time: Total time managing care of this patient today _20___ minutes.
[2025-02-04 21:10] VITALS: BP 128/74; PULSE 67; RESP 16
[2025-02-05 07:44] VITALS: BP 153/90; PULSE 66; RESP 16; TEMP 36.8; O2SAT 96
[2025-02-05] MEDS: methADONE HCl 20 MG/2 ML ORAL.CONC 100 MG PO (07:50)
[2025-02-05] MEDS: Nicotine 21 MG PATCH.TD24 TRANSDERMA (08:21)
--- NOTE | 2025-02-05 10:30 | HO.PSYCHPN ---
Subjective Subjective Date of Service: 02/05/25 Reason For Visit: Crisis Subjective Notes: Conditional Voluntary Interim History: Active on unit. social with peers. attending groups. Patient reports feeling good ; he reports having a good visit with his data recovery planner yesterday and plans on attending PHP at [facility]. continues to deny SI/HI/VH/AH. Continue current tx plan. Medication Compliance: Yes Side effects from medications: No Attending Groups: Yes Mental Status Exam Mental Status Exam Narrative: Pt is alert and oriented; behavior is cooperative and calm, friendly; dressed in casual attire; mood is described as good ; eye contact appropriate; Speech is normal rate, volume and not pressured; thought process is organized; Thought content is on tx/discharge; denies SI/HI/VH/AH. Diagnostics Vital Signs (24Hr): Vital Signs - 24 hr 02/04/25 21:10 02/05/25 07:44 Temperature 98.3 F Pulse Rate 67 66 Respiratory Rate 16 16 Blood Pressure 128/74 153/90 H Pulse Oximetry 96 Oxygen Delivery Method Room Air BMI result Body Mass Index 33.4 Labs 01/28/25 16:56 01/31/25 08:13 Medications Medications Current Medications Acetaminophen (Acetaminophen 325 Mg Tablet) 650 mg PO Q6H PRN PRN Reason: Headache/Pain, Scale 1-10 Last Admin: 02/04/25 15:15 Dose: 650 mg Al Hydroxide/Mg Hydroxide (Magnesium Hydrox/Alum Hydrox 30 Ml Oral.Susp) 30 ml PO Q6H PRN PRN Reason: Heartburn/Nausea Baclofen (Baclofen 10 Mg Tablet) 10 mg PO TID [facility] Last Admin: 02/05/25 08:22 Dose: 10 mg Clonazepam (Clonazepam 1 Mg Tablet) 1 mg PO BID PRN PRN Reason: Anxiety Last Admin: 02/04/25 20:25 Dose: 1 mg Clonidine HCl (Clonidine Hcl 0.1 Mg Tablet) 0.1 mg PO BID [facility]; Protocol Last Admin: 02/05/25 08:22 Dose: 0.1 mg Fluoxetine HCl (Fluoxetine Hcl 20 Mg Capsule) 40 mg PO DAILY [facility] Last Admin: 02/05/25 08:22 Dose: 40 mg Hydroxyzine HCl (Hydroxyzine Hcl 50 Mg Tablet) 50 mg PO TID PRN PRN Reason: mild anxiety Last Admin: 02/04/25 20:24 Dose: 50 mg Ibuprofen (Ibuprofen 600 Mg Tablet) 600 mg PO Q8H PRN PRN Reason: Pain, Moderate(Pain Scale 4-6) Last Admin: 02/04/25 20:25 Dose: 600 mg Magnesium Hydroxide (Milk Of Magnesia 30 Ml Oral.Susp) 30 ml PO DAILY PRN PRN Reason: Constipation Melatonin (Melatonin 3 Mg Tablet) 3 mg PO BEDTIME [facility] Last Admin: 02/04/25 20:26 Dose: 3 mg Methadone HCl (Methadone Hcl 20 Mg/2 Ml Oral.Conc) 100 mg PO DAILY@0800 [facility] Last Admin: 02/05/25 07:50 Dose: 100 mg Multivitamins/Vitamin C (Multivitamin Tablet) 1 tab PO DAILY [facility] Last Admin: 02/05/25 08:22 Dose: 1 tab Nicotine (Nicotine 21 Mg Patch.Td24) 21 mg TRANSDERMA DAILY [facility] Last Admin: 02/05/25 08:21 Dose: 21 mg Nicotine Polacrilex (Nicotine Polacrilex 2 Mg Gum) 4 mg BUCCAL Q2H PRN PRN Reason: Nicotine Cravings Last Admin: 01/31/25 18:20 Dose: 4 mg Ondansetron HCl (Ondansetron Odt 8 Mg Tab.Rapdis) 8 mg TRANSLINGU Q12H PRN PRN Reason: Nausea and Vomiting Trazodone HCl (Trazodone Hcl 100 Mg Tablet) 100 mg PO BEDTIME PRN PRN Reason: Sleep Last Admin: 02/04/25 20:25 Dose: 100 mg Allergies Allergies Allergy/AdvReac Type Severity Reaction Status Date / Time No Known Allergies Allergy Verified 01/28/25 17:05 Assessment & Plan Assessment & Plan (1) MDD (major depressive disorder), recurrent episode: Status: Acute Code(s): F33.9 - Major depressive disorder, recurrent, unspecified (2) PTSD (post-traumatic stress disorder): Status: Acute Code(s): F43.10 - Post-traumatic stress disorder, unspecified (3) Cocaine use disorder: Status: Acute Code(s): F14.10 - Cocaine abuse, uncomplicated (4) Opioid use disorder: Status: Acute Code(s): F11.90 - Opioid use, unspecified, uncomplicated Plan Patient is a 50-year-old male with history of MDD, opiate use disorder and cocaine use disorder who presented to ER via ambulance due to homicidal ideation towards a friend after finding out his girlfriend was cheating on him with his friend. Plan: CV 15 minute safety checks Continue home medications Start: Zyprexa 5mg PO Q4HR PRN agitation Obtain collateral Encourage groups Discharge planning 01/31: Active on unit. medication compliant. Patient reports feeling anxious; pt stated, I'm thinking about hurting him but I wouldn't act on it. I need to come up with a plan to tell my friend to stay away from me. I want to see if I can get a different apartment since he lives near me . Patient reports he plans on continuing to attend [facility] when discharged. denies SI/HI/VH/AH. 3 day notice up on 02/04/25. Continue current tx plan. 02/01: Active on unit. medication compliant. Patient reports feeling much better ; pt stated, I'm laughing and smiling. I woke up feeling good. I'm not having any thoughts of wanting to hurt anyone . denies SI/HI/VH/AH. patient reports sleeping well. 3 day notice up on 02/04/25. Continue current tx plan. 02/02: wants discharge. told will have to wait for tuesday. otherwise no questions or complaints. continue current mgmt. 02/03: feling back to myself again. 3-day up tomorrow, planning to discharge. denies HI. 02/04: Active on unit. social with peers. attending groups. Patient retracted 3 day notice. Patient reports he feels he is starting to feel like I'm in a good spot and not angry anymore . He reports sleeping well. denies SI/HI/VH/AH. Plan to discharge if continues to improve. Continue current tx plan. 02/05: Active on unit. social with peers. attending groups. Patient reports feeling good ; he reports having a good visit with his data recovery planner yesterday and plans on attending [facility] at [facility]. continues to deny SI/HI/VH/AH. Continue current tx plan. Patient educated on: diagnosis, medication risk/benefits and therapeutic strategies Reason for continued inpatient stay Substantial Risk for: med/psych decompensation Time Spent With Patient Time: Total time managing care of this patient today _20___ minutes.
[2025-02-05 19:50] VITALS: BP 162/95; PULSE 70; RESP 16; TEMP 36.8; O2SAT 97
[2025-02-06 08:00] VITALS: BP 148/77; PULSE 56; RESP 18; TEMP 36.4; O2SAT 94
[2025-02-06] MEDS: methADONE HCl 20 MG/2 ML ORAL.CONC 100 MG PO (08:00)
[2025-02-06] MEDS: Nicotine 21 MG PATCH.TD24 TRANSDERMA (08:50)
--- NOTE | 2025-02-06 14:47 | HO.PSYCHPN ---
Subjective Subjective Date of Service: 02/06/25 Reason For Visit: Crisis Subjective Notes: Conditional Voluntary Interim History: Active on unit. social with peers. attending groups. laughing and joking with staff and peers. Patient continues to report feeling good ; looking forward to discharging. denies SI/HI/VH/AH. Patient reports he plans on following up with his outpatient providers. Medication Compliance: Yes Side effects from medications: No Attending Groups: Yes Mental Status Exam Mental Status Exam Narrative: Pt is alert and oriented; behavior is cooperative and calm, friendly; dressed in casual attire; mood is described as good ; eye contact appropriate; Speech is normal rate, volume and not pressured; thought process is organized; Thought content is on discharge; denies SI/HI/VH/AH. Diagnostics Vital Signs (24Hr): Vital Signs - 24 hr 02/05/25 19:50 02/06/25 08:00 Temperature 98.3 F 97.5 F Pulse Rate 70 56 Respiratory Rate 16 18 Blood Pressure 162/95 H 148/77 H Pulse Oximetry 97 94 Oxygen Delivery Method Room Air Room Air BMI result Body Mass Index 33.4 Labs 01/28/25 16:56 01/31/25 08:13 Medications Medications Current Medications Acetaminophen (Acetaminophen 325 Mg Tablet) 650 mg PO Q6H PRN PRN Reason: Headache/Pain, Scale 1-10 Last Admin: 02/05/25 14:37 Dose: 650 mg Al Hydroxide/Mg Hydroxide (Magnesium Hydrox/Alum Hydrox 30 Ml Oral.Susp) 30 ml PO Q6H PRN PRN Reason: Heartburn/Nausea Baclofen (Baclofen 10 Mg Tablet) 10 mg PO TID [facility] Last Admin: 02/06/25 08:52 Dose: 10 mg Clonazepam (Clonazepam 1 Mg Tablet) 1 mg PO BID PRN PRN Reason: Anxiety Last Admin: 02/05/25 20:22 Dose: 1 mg Clonidine HCl (Clonidine Hcl 0.1 Mg Tablet) 0.1 mg PO BID [facility]; Protocol Last Admin: 02/06/25 08:52 Dose: 0.1 mg Fluoxetine HCl (Fluoxetine Hcl 20 Mg Capsule) 40 mg PO DAILY [facility] Last Admin: 02/06/25 08:53 Dose: 40 mg Hydroxyzine HCl (Hydroxyzine Hcl 50 Mg Tablet) 50 mg PO TID PRN PRN Reason: mild anxiety Last Admin: 02/05/25 20:22 Dose: 50 mg Ibuprofen (Ibuprofen 600 Mg Tablet) 600 mg PO Q8H PRN PRN Reason: Pain, Moderate(Pain Scale 4-6) Last Admin: 02/05/25 20:23 Dose: 600 mg Magnesium Hydroxide (Milk Of Magnesia 30 Ml Oral.Susp) 30 ml PO DAILY PRN PRN Reason: Constipation Melatonin (Melatonin 3 Mg Tablet) 3 mg PO BEDTIME [facility] Last Admin: 02/05/25 20:22 Dose: 3 mg Methadone HCl (Methadone Hcl 20 Mg/2 Ml Oral.Conc) 100 mg PO DAILY@0800 [facility] Last Admin: 02/06/25 08:00 Dose: 100 mg Multivitamins/Vitamin C (Multivitamin Tablet) 1 tab PO DAILY [facility] Last Admin: 02/06/25 08:51 Dose: 1 tab Nicotine (Nicotine 21 Mg Patch.Td24) 21 mg TRANSDERMA DAILY [facility] Last Admin: 02/06/25 08:50 Dose: 21 mg Nicotine Polacrilex (Nicotine Polacrilex 2 Mg Gum) 4 mg BUCCAL Q2H PRN PRN Reason: Nicotine Cravings Last Admin: 01/31/25 18:20 Dose: 4 mg Ondansetron HCl (Ondansetron Odt 8 Mg Tab.Rapdis) 8 mg TRANSLINGU Q12H PRN PRN Reason: Nausea and Vomiting Trazodone HCl (Trazodone Hcl 100 Mg Tablet) 100 mg PO BEDTIME PRN PRN Reason: Sleep Last Admin: 02/05/25 20:22 Dose: 100 mg Allergies Allergies Allergy/AdvReac Type Severity Reaction Status Date / Time No Known Allergies Allergy Verified 01/28/25 17:05 Assessment & Plan Assessment & Plan (1) MDD (major depressive disorder), recurrent episode: Status: Acute Code(s): F33.9 - Major depressive disorder, recurrent, unspecified (2) PTSD (post-traumatic stress disorder): Status: Acute Code(s): F43.10 - Post-traumatic stress disorder, unspecified (3) Cocaine use disorder: Status: Acute Code(s): F14.10 - Cocaine abuse, uncomplicated (4) Opioid use disorder: Status: Acute Code(s): F11.90 - Opioid use, unspecified, uncomplicated Plan Patient is a 50-year-old male with history of MDD, opiate use disorder and cocaine use disorder who presented to ER via ambulance due to homicidal ideation towards a friend after finding out his girlfriend was cheating on him with his friend. Plan: CV 15 minute safety checks Continue home medications Start: Zyprexa 5mg PO Q4HR PRN agitation Obtain collateral Encourage groups Discharge planning 01/31: Active on unit. medication compliant. Patient reports feeling anxious; pt stated, I'm thinking about hurting him but I wouldn't act on it. I need to come up with a plan to tell my friend to stay away from me. I want to see if I can get a different apartment since he lives near me . Patient reports he plans on continuing to attend [facility] when discharged. denies SI/HI/VH/AH. 3 day notice up on 02/04/25. Continue current tx plan. 02/01: Active on unit. medication compliant. Patient reports feeling much better ; pt stated, I'm laughing and smiling. I woke up feeling good. I'm not having any thoughts of wanting to hurt anyone . denies SI/HI/VH/AH. patient reports sleeping well. 3 day notice up on 02/04/25. Continue current tx plan. 02/02: wants discharge. told will have to wait for tuesday. otherwise no questions or complaints. continue current mgmt. 02/03: feling back to myself again. 3-day up tomorrow, planning to discharge. denies HI. 02/04: Active on unit. social with peers. attending groups. Patient retracted 3 day notice. Patient reports he feels he is starting to feel like I'm in a good spot and not angry anymore . He reports sleeping well. denies SI/HI/VH/AH. Plan to discharge if continues to improve. Continue current tx plan. 02/05: Active on unit. social with peers. attending groups. Patient reports feeling good ; he reports having a good visit with his assistant golf coach yesterday and plans on attending [facility] at [facility]. continues to deny SI/HI/VH/AH. Continue current tx plan. 02/06: Active on unit. social with peers. attending groups. laughing and joking with staff and peers. Patient continues to report feeling good ; looking forward to discharging. denies SI/HI/VH/AH. Patient reports he plans on following up with his outpatient providers. Patient educated on: diagnosis and medication risk/benefits Reason for continued inpatient stay Substantial Risk for: stable for discharge Time Spent With Patient Time: Total time managing care of this patient today _20___ minutes.
[2025-02-06 19:36] VITALS: BP 153/88; PULSE 68; RESP 18; TEMP 37; O2SAT 96
[2025-02-07 07:00] VITALS: BMI 34.0
[2025-02-07 08:00] VITALS: BP 140/90; PULSE 65; RESP 18; TEMP 37.2; O2SAT 97
[2025-02-07] MEDS: methADONE HCl 20 MG/2 ML ORAL.CONC 100 MG PO (08:07)
[2025-02-07 08:08] VITALS: BP 140/93
[2025-02-07] MEDS: Naloxone HCl Nasal TAKE HOME 4 MG SPRAY 8 MG NOSTRILALT (08:08)
--- NOTE | 2025-02-07 11:45 | PM.PSYDC ---
DS: Providers Provider Date of Service: 02/07/25 Date of admission: 01/30/25 10:36 Date of discharge: 02/07/25 Primary care physician: Unknown Physician Admitting clinician: Anu Mehta Attending physician on admission: Kaveh Brown Attending physician on discharge: Kaveh Brown Discharging clinician: Anu Mehta DS: Diagnosis Discharge Diagnosis (1) MDD (major depressive disorder), recurrent episode: Status: Acute (2) PTSD (post-traumatic stress disorder): Status: Acute (3) Cocaine use disorder: Status: Acute (4) Opioid use disorder: Status: Acute DS: Medications Discharge Medications Home Medications: Home Medications ?Medication ?Instructions ?Recorded ?Confirmed clonazepam 1 mg tablet 1 mg PO TID PRN Anxiety 11/27/24 01/28/25 clonidine HCl 0.1 mg tablet 0.1 mg PO BID PRN anxiety/bp 11/27/24 01/29/25 trazodone 50 mg tablet 100 mg PO BEDTIME PRN Sleep 11/27/24 01/28/25 methadone 10 mg/mL oral 100 mg PO DAILY 11/28/24 01/29/25 concentrate (Methadone Intensol) melatonin 3 mg tablet 3 mg PO BEDTIME 01/29/25 01/29/25 multivitamin 1 tab PO DAILY 01/29/25 01/29/25 Previous Rx's ?Medication ?Instructions ?Recorded baclofen 10 mg tablet 10 mg PO TID 30 days #90 tabs 02/06/25 fluoxetine 40 mg capsule 40 mg PO DAILY 30 days #30 caps 02/06/25 hydroxyzine HCl 50 mg tablet 50 mg PO TID PRN mild anxiety 14 02/06/25 days #42 tabs Mental Status Exam Mental Status Exam Narrative: Pt is alert and oriented; behavior is cooperative and calm, friendly; dressed in casual attire; mood is described as good ; eye contact appropriate; Speech is normal rate, volume and not pressured; thought process is organized; Thought content is on discharge; denies SI/HI/VH/AH. DS: Summary Hospital Course Hospital Course: Patient is a 50-year-old male with history of MDD, opiate use disorder and cocaine use disorder who presented to ER via ambulance due to homicidal ideation towards a friend after finding out his girlfriend was cheating on him with his friend. Per crisis report, patient reports he was at an IOP and expressed homicidal ideation towards this friend who he believes has been sleeping with his girlfriend. Patient also reports they recently relapsed on opiates. He denies SI/VH/AH. He reports appetite and sleep are good. Patient reports he has been in recovery and recently relapsed on substances due to relationship issues and increased depression. Patient has outpatient psychiatric providers through [facility]. Recent hospitalization from [facility] in November 2024. Collateral obtained from patient's friend, Yanni, who reports patient was doing well and was in recovery. She reports this week he relapsed after finding out his girlfriend was cheating on him and also he recently had contact with his estranged daughter and feels this triggered his relapse and depression. During admission assessment, patient presents alert and oriented x3. Calm and cooperative. Guarded. Patient reports feeling angry ; patient stated, I don't want to go back home because I'm worried about what I'm going to do. I just want to go lay down. I'm not in the mind set to talk . Patient reports he has been using IV heroin and cocaine for the last 2 weeks. Utox positive for opiates, methadone, fentanyl, benzodiazepines, cocaine. Patient ended conversation and went to lay down in room. He denies SI/HI/VH/AH. He reports being medication compliant and attending IOP. Plan: CV 15 minute safety checks Continue home medications Start: Zyprexa 5mg PO Q4HR PRN agitation Obtain collateral Encourage groups Discharge planning Active on unit. medication compliant. Patient reports feeling anxious; pt stated, I'm thinking about hurting him but I wouldn't act on it. I need to come up with a plan to tell my friend to stay away from me. I want to see if I can get a different apartment since he lives near me . Patient reports he plans on continuing to attend IOP when discharged. denies SI/HI/VH/AH. 3 day notice up on 02/04/25. Continue current tx plan. Active on unit. medication compliant. Patient reports feeling much better ; pt stated, I'm laughing and smiling. I woke up feeling good. I'm not having any thoughts of wanting to hurt anyone . denies SI/HI/VH/AH. patient reports sleeping well. 3 day notice up on 02/04/25. Continue current tx plan. wants discharge. told will have to wait for tuesday. otherwise no questions or complaints. continue current mgmt. feling back to myself again. 3-day up tomorrow, planning to discharge. denies HI. Active on unit. social with peers. attending groups. Patient retracted 3 day notice. Patient reports he feels he is starting to feel like I'm in a good spot and not angry anymore . He reports sleeping well. denies SI/HI/VH/AH. Plan to discharge if continues to improve. Continue current tx plan. Active on unit. social with peers. attending groups. Patient reports feeling good ; he reports having a good visit with his recovery engineer yesterday and plans on attending PHP at [facility]. continues to deny SI/HI/VH/AH. Continue current tx plan. Active on unit. social with peers. attending groups. laughing and joking with staff and peers. Patient continues to report feeling good ; looking forward to discharging. denies SI/HI/VH/AH. Patient reports he plans on following up with his outpatient providers. Status at Discharge Cognitive/behavioral status at discharge: Patient has insight and demonstrates good judgment in terms of wanting to pursue treatment. Patient has a safety plan that includes presenting to the closest ER or calling 911 if feeling unsafe. Functional status at discharge: independent ambulation Overall status at discharge: patient is back to baseline Time Spent with Patient Time attestation: Total time managing care of this patient today _20___ minutes. Time spent: Less than 30 minutes Discharge Plan Discharge Anticipated Discharge Date/Time: 02/07/25 11:00 Patient Disposition: Home, Self-Care Discharge Diagnosis: MDD, PTSD, opioid use d/o, cocaine use d/o Referrals: Gloria Renner ([facility]) [Other] - 02/08/25 8:30 am Referral Note: In person appointment with for Substance Use Case Management. Bernie Guzman ([facility]) [Other] - 02/08/25 9:00 am Referral Note: In person intake with a therapist. Azul Noel ([facility]) [Other] - 03/04/25 9:00 am Referral Note: telehealth appointment Physician,Unknown J [Primary Care Provider, Medical] - 1 Week Discharge Medications: New baclofen 10 mg Tablet 10 mg PO TID 30 Days Qty: 90 0RF fluoxetine 40 mg capsule 40 mg PO DAILY 30 Days Qty: 30 0RF hydroxyzine HCl 50 mg Tablet 50 mg PO TID PRN (Reason: mild anxiety) 14 Days Qty: 42 0RF Continued clonazepam 1 mg tablet 1 mg PO TID PRN (Reason: Anxiety) clonidine HCl 0.1 mg tablet 0.1 mg PO BID PRN (Reason: anxiety/bp) trazodone 50 mg tablet 100 mg PO BEDTIME PRN (Reason: Sleep) methadone [Methadone Intensol] 10 mg/mL Concentrate 100 mg PO DAILY multivitamin Tablet 1 tab PO DAILY melatonin 3 mg Tablet 3 mg PO BEDTIME Discontinued Calcium Magnesium 500 mg calcium- 250 mg Tablet 1 tab PO BID Discharge Orders: Discharge Order (Routine); Ordered 02/07/25 Ordered By: Anu Mehta Diet: Regular diet Activity on Discharge: As tolerated Stand Alone Forms: Patient Portal Discharge page, Community Support Print Language: Maltese Care Plan Goals: Maintain mood and safe behaviors Take medications as prescribed Continue to pursue sobriety Practice coping skills Continue with outpatient providers and reach out to them as needed Health Concerns: Mood stability and behaviors Sobriety Plan of Treatment: Follow up with your PCP, psychiatric provider and other outpatient providers regarding above concerns Take medications as prescribed Assessment: Patient has insight and demonstrates good judgment in terms of wanting to pursue treatment. Patient has a safety plan that includes presenting to the closest ER or calling 911 if feeling unsafe. Discharge Date/Time: 02/07/25 10:10
== END 2025-02-07 10:10 | disposition home or self-care (01) | DRG 885 ==
LOC: HO.ED 01-29 16:47 → HO.PADLT16 01-30 10:36
PROVIDERS: Physician Assistant Medical; Admitting Provider Registered Nurse; Emergency Provider Emergency Medicine; Responsible Provider Registered Nurse; Visit Provider Psychiatry & Neurology Psychiatry
DX: F33.9 Major depressive disorder, recurrent, unspecified (principal); F11.20 Opioid dependence, uncomplicated; R45.850 Homicidal ideations; F43.10 Post-traumatic stress disorder, unspecified; F14.10 Cocaine abuse, uncomplicated; F17.210 Nicotine dependence, cigarettes, uncomplicated; Z71.6 Tobacco abuse counseling; Z79.899 Other long term (current) drug therapy
CPT/HCPCS: 36415; 80053; 80061; 80143; 80179; 80307; 81001; 83036; 85025; 93005; 99285; S9485

== ENCOUNTER → 2025-01-28 15:52 | Outpatient (BNV) | payer MEDICARE, MEDICAID, SELFPAY | PROVIDERS: Emergency Provider Emergency Medicine; Visit Provider Internal Medicine Cardiovascular Disease | DX: Z13.6 Encounter for screening for cardiovascular disorders (principal) | CPT/HCPCS: 93010 ==

== ENCOUNTER → 2025-01-30 10:36 | Outpatient (BNV) | payer MEDICARE, MEDICAID, SELFPAY | PROVIDERS: Admitting Provider Registered Nurse; Emergency Provider Emergency Medicine; Responsible Provider Registered Nurse; Visit Provider Registered Nurse | DX: F33.2 Major depressive disorder, recurrent severe without psychotic features (principal); F14.10 Cocaine abuse, uncomplicated; F11.90 Opioid use, unspecified, uncomplicated; F43.11 Post-traumatic stress disorder, acute | CPT/HCPCS: 90792; 99231; 99238 ==

== ENCOUNTER 2025-03-29 18:01 | Emergency (ER) | payer MEDICARE, MEDICAID, SELFPAY ==
--- NOTE | ~2025-03-29 | XR_ITS ---
CLINICAL HISTORY: CP, SOB 2 view chest x-ray Comparison: None provided Findings: The lungs are clear. Normal size heart. No acute fracture. IMPRESSION: 1. No acute findings. This document has been electronically signed by: Sol Perez MD on 03/29/2025 19:04:08
[2025-03-29 18:04] VITALS: BP 128/75; PULSE 86; RESP 18; TEMP 37; O2SAT 94; BMI 34.8
--- NOTE | 2025-03-29 18:05 | ED.GENADULT ---
HPI - General Adult General Chief complaint: Upper Respiratory Symptoms Stated complaint: Flu like symptoms Time Seen by Provider: 03/29/25 20:16 Source: patient Limitations: no limitations History of Present Illness ED Provider: Mayra Chan PA-C HPI narrative: 50-year-old male with a history of IV drug abuse, polysubstance abuse,PTSD, depression presents with viral syndrome x2 weeks. Associated Cough,chills, generalized malaise, body ache sore throat, sweating at times. patient went to urgent care he has been on a course of Tamiflu and azithromycin, he completed both medications. Denies wheezing or known fever. No sick contacts with similar symptoms. Related Data Home Medications ?Medication ?Instructions ?Recorded ?Confirmed clonazepam 1 mg tablet 1 mg PO TID PRN Anxiety 11/27/24 01/28/25 clonidine HCl 0.1 mg tablet 0.1 mg PO BID PRN anxiety/bp 11/27/24 01/29/25 trazodone 50 mg tablet 100 mg PO BEDTIME PRN Sleep 11/27/24 01/28/25 methadone 10 mg/mL oral 100 mg PO DAILY 11/28/24 01/29/25 concentrate (Methadone Intensol) melatonin 3 mg tablet 3 mg PO BEDTIME 01/29/25 01/29/25 multivitamin 1 tab PO DAILY 01/29/25 01/29/25 Previous Rx's ?Medication ?Instructions ?Recorded baclofen 10 mg tablet 10 mg PO TID 30 days #90 tabs 02/06/25 fluoxetine 40 mg capsule 40 mg PO DAILY 30 days #30 caps 02/06/25 hydroxyzine HCl 50 mg tablet 50 mg PO TID PRN mild anxiety 14 02/06/25 days #42 tabs Allergies Allergy/AdvReac Type Severity Reaction Status Date / Time No Known Allergies Allergy Verified 03/29/25 18:04 Review of Systems Review of Systems: Yes all other systems are reviewed and are negative Constitutional: Constitutional: Reports chills, Reports fatigue, Denies fever(s) and Reports malaise ENT: Reports sore throat Cardiovascular: Cardiovascular: Denies chest pain and Denies dyspnea Respiratory: Respiratory: Denies chest congestion, Reports cough, Denies dyspnea and Denies wheezing Gastrointestinal: Gastrointestinal: Denies abdominal pain, Denies nausea and Denies vomiting Endocrine: Endocrine: Reports fatigue Allergic/Immunologic: Allergic/Immunologic: Denies wheezing PMFSH Past Medical History Attestation statement: The following information was validated with the patient. Medical History (Updated 03/29/25 @ 20:43 by KEYLA Jacome) Homicidal ideation Opioid use disorder Social History Social History Household Members: None Housing: Apartment Do you presently have visiting nurse or other home services: No Alcohol intake: never Patient Tobacco Use Status: Current everyday Tobacco user Tobacco use type: Cigarette Cigarette Packs Per Day: 1 Cigarettes Per Day: 20.0 e-Cigarette/Vaping Use: Former Use Second Hand Smoke Exposure: Yes (from people smoking around him) Substance Use Type: Heroin and Opiates Advance Directives: No Advance Directives Information Provided: No service: No Sexual orientation: Straight/Heterosexual Physical Exam ED Vital Signs: Vital Signs - 24 hr 03/29/25 18:04 Temperature 98.6 F Pulse Rate 86 Respiratory Rate 18 Blood Pressure 128/75 Pulse Oximetry 94 Oxygen Delivery Method Room Air BMI result Body Mass Index 34.8 Const Other: Alert overall well-appearing Orientation/consciousness: patient oriented x3 HENMT Other: oropharynx is without erythema no exudate, uvula midline, no trismus no drooling, no swelling inferior to the jawline no sublingual fluctuance Resp Other: nonlabored respirations, lungs clear to auscultation no wheezing Cardio Other: normal peripheral perfusion Skin Other: warm dry no rash Neuro General: patient oriented x3, gait normal, no focal motor deficits and CN's II-XI intact bilaterally Psych Other: cooperative Course Course Course Narrative: This is an RME: Additional HPI, ROS, PE not included below will be deferred to primary provider. RME assessment and note performed by: Cecy Maldonado PA-C This is a 22-yvvx-vgw-male, with a history of IVDA on methadone, who presents to the ER with a complaint of chest pain, shortness of breath, body aches since Mar 09. Reports symptoms wax and wane in severity. Went to two urgent cares and was told that if his symptoms do not improve to come to the ED. They placed him on abx, which he completed without any relief. Patient does admit to IVDA, states that he occasionally still uses, does not report how much he uses. Plan: Labs, EKG, chest x-ray, viral swabs Medical Decision Making Medical Decision Making [facility] Narrative: 50-year-old male with a history of IV drug abuse, polysubstance abuse,PTSD, depression presents with viral syndrome x2 weeks. Associated Cough,chills, generalized malaise, body ache sore throat, sweating at times. patient went to urgent care he has been on a course of Tamiflu and azithromycin, he completed both medications. Denies wheezing or known fever. No sick contacts with similar symptoms. Problem: IV drug abuse, polysubstance abuse, psychiatric illness History: Per patient I have considered the following differential diagnoses: Viral syndrome, pneumonia, bronchitis, strep pharyngitis, RPA, SENIOR SQL DEVELOPER Plan: Screening labs, viral panel and chest x-ray obtained from triage, everything is negative. His exam was unremarkable. I do not have concern for strep pharyngitis based on my exam, there was also no evidence of RPA or SENIOR SQL DEVELOPER. The patient likely has yet another virus that has been circulating within the community. We will send with home care instructions. I have independently reviewed the following tests: Labs: No leukocytosis, not anemic, no electrolyte abnormality viral panel negative tested for COVID influenza a and B chest x-ray:Findings: The lungs are clear. Normal size heart. No acute fracture. IMPRESSION: 1. No acute findings. Lab Data 03/29/25 18:24 03/29/25 18:24 Labs: Lab Results 03/29/25 03/29/25 Range/Units 18:24 18:24 WBC 5.8 (4.8-10.8) X10*3/uL RBC 4.33 L (4.60-5.80) X10*6/uL Hgb 13.1 L (14.0-18.0) g/dl Hct 38.4 L (42.0-52.0) % MCV 88.7 (80.0-98.0) fL MCH 30.3 (27.0-33.0) pg MCHC 34.1 (31.0-36.0) g/dl RDW 11.8 (11.0-16.0) % Plt Count 214 (160-400) X10*3/uL MPV 11.3 (9.4-12.4) fL Immature Gran % (Auto) 0.3 (0.0-0.4) % Neut % (Auto) 60.6 (45-73) % Lymph % (Auto) 27.5 (20-40) % [place] % (Auto) 9.2 (2-11) % Eos % (Auto) 1.7 (0-4) % Baso % (Auto) 0.7 (0-2) % Lymph # (Auto) 1.6 (1.2-4.9) X10*3/uL [place] # (Auto) 0.5 (0.1-1.2) X10*3/uL Eos # (Auto) 0.1 (0.0-0.4) X10*3/uL Baso # (Auto) 0.0 (0.0-0.2) X10*3/uL Abs Immat Gran (auto) 0.02 (0.00-0.03) X10*3/uL Absolute Neuts (auto) 3.5 (2.0-8.3) x10*3/uL Absolute Nucleated RBC 0.000 (0.0-0.012) X10*3/uL Nucleated RBC % (auto) 0.0 (0.0-0.2) /100WBC ESR 64 H (0-15) MM/HR Sodium 139 (135-145) mmol/L Potassium 3.7 (3.3-5.1) mmol/L Chloride 104 (96-108) mmol/L Carbon Dioxide 27 (22-29) mmol/L Anion Gap 12 (12-20) BUN 9 (9-16) mg/dL Creatinine 0.90 (0.5-1.4) mg/dL Estim Creat Clear Calc 120.9 Estimated GFR > 60 Random Glucose 84 (60-115) mg/dL Calcium 9.6 (8.4-10.2) mg/dL Magnesium 1.9 1.9 (1.6-2.6) mg/dL Total Bilirubin 0.5 (0.0-1.0) mg/dL Direct Bilirubin 0.2 (0.0-0.5) mg/dL AST 23 (5-37) U/L ALT 14 (0-40) U/L Alkaline Phosphatase 91 (39-117) U/L Troponin I High Sens < 2.7 (<3.5-35.0) ng/L C-Reactive Protein 1.55 H (< or = 0.50) mg/dL Total Protein 8.2 H (6.5-8.0) g/dL Albumin 4.5 (3.5-5.0) g/dL COVID-19 (HEMALATHA) Negative (Negative) COVID-19 Clin Com See Note Influenza Type A (NOEMI) Negative (Negative) Influenza Type B (NOEMI) Negative (Negative) Influenza A & B Note See Note Discharge Plan Discharge Clinical Impression: Acute viral syndrome, Pharyngitis Patient Disposition: Home, Self-Care Instructions: Viral Syndrome (ED), Pharyngitis (ED) Additional Instructions: you were tested for influenza and COVID the viral panel was negative. The chest x-ray is clear you do not have pneumonia. The remainder of your screening labs were normal as well. You have another virus has been circulating within the community, see home care instructions. Alternate between the use of [id number] Tylenol 1000 mg taken every 8 hours, with [id number] ibuprofen, 600 mg taken every 6 hours with food, for fever chills, body ache and headache. Follow up with your primary care provider as needed. Prescriptions: No Action clonazepam 1 mg tablet 1 mg PO TID PRN (Reason: Anxiety) clonidine HCl 0.1 mg tablet 0.1 mg PO BID PRN (Reason: anxiety/bp) trazodone 50 mg tablet 100 mg PO BEDTIME PRN (Reason: Sleep) methadone [Methadone Intensol] 10 mg/mL Concentrate 100 mg PO DAILY multivitamin Tablet 1 tab PO DAILY melatonin 3 mg Tablet 3 mg PO BEDTIME baclofen 10 mg Tablet 10 mg PO TID 30 Days Qty: 90 0RF fluoxetine 40 mg capsule 40 mg PO DAILY 30 Days Qty: 30 0RF hydroxyzine HCl 50 mg Tablet 50 mg PO TID PRN (Reason: mild anxiety) 14 Days Qty: 42 0RF Print Language: Kyrgyz
--- NOTE | 2025-03-29 18:06 | ECG_ITS ---
Test Reason : DYSPNEA Blood Pressure : */* mmHG Vent. Rate : 74 BPM Atrial Rate : 74 BPM P-R Int : 164 ms QRS Dur : 88 ms QT Int : 420 ms P-R-T Axes : 57 7 44 degrees QTcB Int : 466 ms Normal sinus rhythm Normal ECG When compared with ECG of 28-Jan-2025 16:33, No significant change was found Referred By: Cecy Maldonado Electronically Signed By: LITA COPE MD
[2025-03-29 18:36] LABS: MANUAL DIFF FLAG NO
[2025-03-29 18:38] LABS: Hematocrit 38.4 % (42.0-52.0); Hemoglobin 13.1 g/dl (14.0-18.0); Imm Gran Abs Auto 0.02 X10*3/uL (0.00-0.03); Imm Gran Pct Auto 0.3 % (0.0-0.4); Lymphocytes Absolute Auto 1.6 X10*3/uL (1.2-4.9); Mean Corpuscular HGB Conc 34.1 g/dl (31.0-36.0); Mean Corpuscular Hemoglobin 30.3 pg (27.0-33.0); Mean Corpuscular Volume 88.7 fL (80.0-98.0); NRBC Abs Auto 0.000 X10*3/uL (0.0-0.012); NRBC Pct Auto 0.0 /100WBC (0.0-0.2); Platelet Count 214 X10*3/uL (160-400); Red Blood Count 4.33 X10*6/uL (4.60-5.80); White Blood Count 5.8 X10*3/uL (4.8-10.8)
[2025-03-29 18:52] LABS: COVID-19 Test Negative (Negative); IDNOW Serial# 55D5AD1C; IDNOW Serial# 58CA691E; Influenza B2 Negative (Negative)
[2025-03-29 18:54] LABS: Alanine Aminotransferase 14 U/L (0-40); Albumin Level 4.5 g/dL (3.5-5.0); Alkaline Phosphatase 91 U/L (39-117); Anion Gap 12 (12-20); Aspartate Amino Transferase 23 U/L (5-37); Blood Urea Nitrogen 9 mg/dL (9-16); Calcium 9.6 mg/dL (8.4-10.2); Carbon Dioxide 27 mmol/L (22-29); Chloride 104 mmol/L (96-108); Creatinine Clr Calc Pharmacy 120.9; Estimated Glomerular Filt Rate > 60; Magnesium 1.9 mg/dL (1.6-2.6); Potassium 3.7 mmol/L (3.3-5.1); Sodium 139 mmol/L (135-145); Total Protein 8.2 g/dL (6.5-8.0)
[2025-03-29 19:02] LABS: Troponin-I High Sensitivity < 2.7 ng/L (<3.5-35.0)
[2025-03-29 21:08] VITALS: BP 00/00; PULSE 0; RESP 0; TEMP -17.7; TEMP 0
== END 2025-03-29 21:09 | disposition home or self-care (01) ==
PROVIDERS: Physician Assistant Medical; Emergency Provider Emergency Medicine; PCP Internal Medicine
DX: B34.9 Viral infection, unspecified (principal); J02.9 Acute pharyngitis, unspecified; F19.10 Other psychoactive substance abuse, uncomplicated
CPT/HCPCS: 36415; 71046; 80048; 80076; 83735; 84484; 85025; 85652; 86140; 87502; 87635; 93005; 99283

== ENCOUNTER → 2025-03-29 18:06 | Outpatient (BNV) | payer MEDICARE, MEDICAID, SELFPAY | PROVIDERS: Emergency Provider Emergency Medicine; PCP Internal Medicine; Visit Provider Internal Medicine Cardiovascular Disease | DX: R06.00 Dyspnea, unspecified (principal) | CPT/HCPCS: 93010 ==

== ENCOUNTER → 2025-03-29 18:09 | Outpatient (BNV) | payer MEDICARE, MEDICAID, SELFPAY | PROVIDERS: PCP Internal Medicine; Visit Provider Student in an Organized Health Care Education/Training Program | DX: R07.9 Chest pain, unspecified (principal); R06.02 Shortness of breath | CPT/HCPCS: 71046 ==